=== PATIENT | female | born 1995 | race Caucasian/White ===

== ENCOUNTER 2018-11-10 15:26 | Outpatient (CLI) | payer OTHER ==
[~2018-11-10] VITALS: Ht 157.5 cm; Wt 84.0 kg
[2018-11-10 15:44] VITALS: Ht 157.5 cm; Wt 84.0 kg
[2018-11-10 15:45] VITALS: BP 122/66; PULSE 101; RESP 18
[2018-11-10] MEDS ORDERED: LACTATED RINGER'S 1,000 ML IV SCH (17:30)
--- NOTE | 2018-11-10 19:10 | TRIAGE ---
OB Triage Datetime Report Generated by CPN: 11/10/2018 19:10 Datetime: 11/10/2018 17:34 Stage of : OB Triage Headache: Denies Blurred Vision: No RUQ Epigastric Pain: Denies Facial Edema: None Labor Evaluation Frequency: none Pattern: Normal: <= 5 Contractions in 10 Minutes Resting Tone [place]: Relaxed Heart Rate FHR Baseline Rate: 140 Monitor Mode: External US FHR Baseline Changes: No Baseline Change Variability: Moderate 6-25 bpm Accelerations: 15X15 Decelerations: None Category: Category I Pain Presence: None/Denies Vaginal Exam Membrane Status: Intact Datetime: 11/10/2018 15:49 Stage of : OB Triage Maternal Assessment Level of Consciousness: Fully Conscious DTR's/Clonus: DTRs 2+; No Clonus Headache: Denies Blurred Vision: No Respiratory Effort: Unlabored; Regular Rhythm; Equal Expansion Breath Sounds, Left: Clear and Equal Breath Sounds, Right: Clear and Equal Nausea/Vomiting: Denies RUQ Epigastric Pain: Denies Lower Extremities Edema: None Degree: None Upper Extremities Edema: None Degree: None Facial Edema: None Temperature Route: Oral Fall Risk Assessment History of Falling: (0) No Secondary Diagnosis: (0) No Ambulatory Aid: (0) Bedrest/Nurse Assist IV Therapy: (0) No Gait: (0) Normal/Bedrest/Immobile Mental Status: (0) Oriented to Own Ability Fall Score: 0 Fall Risk Score Definition: No Risk: No action required Monitor Mode: External Heart Rate FHR Baseline Rate: 140 Monitor Mode: External US Pain Assessment Pain Scale: 5 Pain Presence: Intermittent Pain Type: Cramping Pain Location: Abdomen Pain Goal: lower abd Datetime: 11/10/2018 15:47 Time of Arrival: 11/10/2018 15:19 EGA: 30.3 Arrived By: Ambulatory Arrived From: Home Chief Complaint: lower abd pain Movement: Present Rupture of Membranes: Denies Vaginal Discharge: Denies Recent Sexual Intercouse: Denies Abdominal Trauma: Not Applicable Patient Complaints: Other Additional Patient Complaints: wake up with lower abd pain, denies bleedinga nd leaking of water Time Provider Notified: 11/10/2018 15:45 Provider Notified: Tamar Initial Plan: efm/ u/s, cbc, ua, cmp
--- NOTE | 2018-11-19 17:58 | HP ---
DATE OF ADMISSION: 11/10/2018 HISTORY OF PRESENT ILLNESS: This is a 22-year-old lady, 1, EDC of 01/22/2019, at 29 and 5/7 weeks, admitted to labor and delivery area because of lower abdominal pain and low back pain that sta rted about few hours prior to admission. She had care at Dr. Goddard's office, [facility] and the care was uneventful. PAST PERSONAL HISTORY: No history of diabetes, TB, asthma. ALLERGIES: NO ALLERGIES. SOCIAL HISTORY: The patient does not smoke. She does not drink. MEDICATIONS: She does not take any drugs except her; 1. Iron. 2. Vitamins. GYNECOLOGIC HISTORY: She had menarche at the age of 11, every 28 days interval, 3 to 4 days duration and moderate in amount. FAMILY HISTORY: Noncontributory. REVIEW OF SYSTEMS: CARDIOVASCULAR: No chest pains. RESPIRATORY: No cough. GASTROINTESTINAL: No diarrhea, no vomiting. GENITOURINARY: No dysuria. PHYSICAL EXAMINATION: GENERAL: Reveals a conscious, coherent lady and in no acute distress. VITAL SIGNS: Her blood pressure 120/80, pulse rate 80 per minute, respirations 16 per minute. BREASTS, HEART AND LUNGS: Within normal limits. ABDOMEN: Soft. No organomegaly. Fundic height is 29 cm. heart tones are 140 per minute. PELVIC: Done by me revealed the cervix to be closed. EXTREMITIES: No pedal edema. ADMITTING DIAGNOSES: 1. A 29-5/7 weeks' intrauterine . 2. Rule out labor. PLAN: The patient was ordered hydration and she had an OB ultrasound. The OB ultrasound, SVEN and BP P were all normal. After few hours of observation, the patient felt good and no more pain, so she wa s discharged home in good and stable condition on general diet and activity was restricted. She was counseled. She was instructed. She was told to come back to the clinic in 1 week. FINAL DIAGNOSES: 1. A 29-5/7 weeks' intrauterine . 2. False labor. 3. Dehydration. Dictated By: YAHAIRA ISLAS MD NS/NTS Conf#: [id number] DID#: [id number] CC: HECTOR GODDARD MD;*EndCC*
== END 2018-11-10 18:56 | disposition home or self-care (01) ==
LOC: OBT 15:26 → L-D 15:30 → OBT 18:56
PROVIDERS: ATTEND Obstetrics & Gynecology
DX: O26.893 Other specified pregnancy related conditions, third trimester (principal); Z3A.29 29 weeks gestation of pregnancy; M54.5 Low back pain; R10.30 Lower abdominal pain, unspecified
CPT/HCPCS: 76817; 76818; 80053; 81001; 85025; 96360; J7120; Z7500; G0463

== ENCOUNTER 2018-12-10 22:46 | Inpatient (IN) | payer OTHER ==
[~2018-12-10] VITALS: Ht 157.5 cm; Wt 88.1 kg
[2018-12-10 22:52] VITALS: BP 117/59; PULSE 83; RESP 17; Ht 157.5 cm; Wt 88.1 kg
[2018-12-10] MEDS ORDERED: DOCU-144 PO (22:56)
[2018-12-10] MEDS ORDERED: PREN-93 PO (22:56)
[2018-12-11] MEDS ORDERED: LACTATED RINGER'S 1,000 ML IV ONE (02:00)
[2018-12-11] MEDS ORDERED: TERBUTALINE 1 MG/ML INJ SC ONE (02:00)
--- NOTE | 2018-12-11 02:00 | HP ---
Date/Time of Note Date/Time of Note DATE: 12/11/18 TIME: 01:57 OB - History Hx of Present Free Text/Dictation 22-year-old 1 para 0 at 33 weeks and 6 days of gestation with estimated date of delivery January 22, 2019 Patient is GDM A1 Patient presents with chief complaint of contractions every 5 to 6 minutes She reports positive movement, denies any vaginal bleeding or leaking fluid Estimated Due Date: Jan 22, 2019 : 1 Para: 0 Care: Good Care Obstetrical Complications: Gestational Diabetes (GDM A1) Past Family/Social History * Past Medical, Surgical, Family and Obstetric Histories reviewed from chart. OB Admission Exam Vital Signs Vital Signs Vital Signs Date Temp Pulse Resp B/P (MAP) Pulse Ox O2 O2 Flow FiO2 Time Delivery Rate 12/10/18 98.2 83 17 117/59 Room Air 22:52 (78) Physical Exam HEENT: WNL Heart: Rhythm Normal Lungs: Clear, Equal Abdomen: WNL Extremities: Normal Reflexes: Normal Cervical Dilatation: None Membranes: Intact Heart Rate: 140's Accelerations: Accelerations Present Decelerations: No Decelerations Varibility: Moderate Contractions on Admission: < 5 Minutes Apart Intensity: Moderate Last 72 hours Lab Results Urine Results - 72 Hrs Test 12/10/18 23:30 Urine Color YELLOW (YELLOW) Urine Clarity CLEAR (CLEAR) Urine pH 7.0 (5.0-9.0) Urine Specific [place] 1.013 (1.003-1.030) Urine Ketones NEGATIVE mg/dL (NEGATIVE) Urine Nitrite NEGATIVE mg/dL (NEGATIVE) Urine Bilirubin NEGATIVE mg/dL (NEGATIVE) Urine Urobilinogen NEGATIVE mg/dL (NEGATIVE) Urine Leukocyte Esterase NEGATIVE [place] Urine Hemoglobin NEGATIVE mg/dL (NEGATIVE) Urine Glucose NEGATIVE mg/dL (NEGATIVE) Urine Total Protein NEGATIVE mg/dl (NEGATIVE) PROCEDURE: US biophysical profile. CLINICAL INDICATION: labor. well-being. TECHNIQUE: Multiple sonographic images of the uterus were obtained. The images were reviewed on a PACS workstation. COMPARISON: US PELVIS 11/10/2018 FINDINGS: There is a single live intrauterine gestation. heart rate is 127 beats per minute. The position is cephalic. The placenta is fundal, grade 1-2. The SVEN is 16 cm. The cervix is closed and measures 2.9 cm. Breathing Movement: 2 Gross Body Movement: 2 Tone: 2 Qualitative Amniotic Fluid Volume: 2 TOTAL: 8 IMPRESSION: 1. Single viable intrauterine gestation. 2. Biophysical profile = 8/8. 3. SVEN = 16 cm. 4. The cervix is closed and measures 2.9 cm. RPTAT: HFN .Valencia Adame MD, Date Time Electronically viewed and signed by .Valencia Adame MD, on 12/11/2018 00:45 .N/ CC: YAHAIRA ISLAS MD [phone] Estimated weight 3150 g OB Assessment/Plan Reason for admission: labor Other plan: Admit to antepartum IV fluids Betamethasone for lung maturity Magnesium sulfate for neuro protection Perinatology and neonatology consultation Copies To: CC: YAHAIRA ISLAS MD ; GLENDY MENDENHALL MD Dec 11, 2018 02:00
[2018-12-11] MEDS ORDERED: MAGNESIUM SULFATE 4 GM/100 ML 100 ML IV ONE (02:30)
[2018-12-11] MEDS: BETAMET NA PHOS/AC(6 MG/ML) 2 ML INJ SYG IM SCH (02:32)
[2018-12-11] MEDS ORDERED: MAGNESIUM SULFATE 20 GM/500 ML 500 ML IV SCH ×2 (03:00→09:00)
[2018-12-11] MEDS: LACTATED RINGER'S 1,000 ML IV SCH ×3 (03:21→19:00)
--- NOTE | 2018-12-11 06:02 | TRIAGE ---
OB Triage Datetime Report Generated by CPN: 12/11/2018 06:02 Datetime: 12/11/2018 04:31 Stage of : Antepartum Maternal Assessment Level of Consciousness: Fully Conscious DTR's/Clonus: DTRs 2+; No Clonus Headache: Denies Breath Sounds, Left: Clear and Equal Breath Sounds, Right: Clear and Equal Nausea/Vomiting: Denies RUQ Epigastric Pain: Denies Temperature Route: Oral Labor Evaluation Frequency: x3 Monitor Mode: External Duration (sec)2399: 50-90 Quality: Moderate Resting Tone [place]: Relaxed Heart Rate FHR Baseline Rate: 135 Monitor Mode: External US Variability: Moderate 6-25 bpm Accelerations: 15X15 Decelerations: None Pain Assessment Pain Scale: 6 Pain Presence: Intermittent Pain Type: Contraction Pain Location: Abdomen; Back Pain Relief Measures: Comfort Measures Datetime: 12/11/2018 04:16 Assessment Type: Admission Assessment Vaginal Bleeding: None Maternal Assessment Level of Consciousness: Fully Conscious DTR's/Clonus: DTRs 2+; No Clonus Headache: Denies Blurred Vision: No Respiratory Effort: Unlabored; Regular Rhythm; Equal Expansion Breath Sounds, Left: Clear and Equal Breath Sounds, Right: Clear and Equal Nausea/Vomiting: Denies RUQ Epigastric Pain: Denies Facial Edema: None Fall Risk Assessment History of Falling: (0) No Secondary Diagnosis: (0) No Ambulatory Aid: (0) Bedrest/Nurse Assist IV Therapy: (0) No Gait: (0) Normal/Bedrest/Immobile Mental Status: (0) Oriented to Own Ability Fall Score: 0 Fall Risk Score Definition: No Risk: No action required Datetime: 12/11/2018 02:42 Comments: MONITOR OFF, PT UP TO BR THEN TRANSFERRED TO 312B VIA WHEELCHAIR ACCOMPANIED BY BOG CUTTER Datetime: 12/11/2018 02:33 Labor Evaluation Frequency: irregular Monitor Mode: External Duration (sec)2399: 40-60 Quality: Mild Resting Tone [place]: Relaxed Heart Rate FHR Baseline Rate: 125 Monitor Mode: External US Variability: Moderate 6-25 bpm Accelerations: 15X15 Decelerations: None Category: Category I Pain Assessment Pain Scale: 6 Pain Presence: Intermittent Pain Type: Contraction Pain Location: Abdomen; Back Pain Relief Measures: Comfort Measures Datetime: 12/11/2018 02:00 Labor Evaluation Frequency: 2-6 Monitor Mode: External Duration (sec)2399: 40-90 Quality: Moderate Resting Tone [place]: Relaxed Heart Rate FHR Baseline Rate: 125 Monitor Mode: External US Variability: Moderate 6-25 bpm Accelerations: 15X15 Decelerations: None Category: Category I Pain Assessment Pain Scale: 6 Pain Presence: Intermittent Pain Type: Contraction Pain Location: Abdomen; Back Pain Relief Measures: Comfort Measures Datetime: 12/11/2018 01:00 Labor Evaluation Frequency: 2-7 Monitor Mode: External Duration (sec)2399: 40-70 Quality: Mild Resting Tone [place]: Relaxed Heart Rate FHR Baseline Rate: 120 Monitor Mode: External US Variability: Moderate 6-25 bpm Accelerations: 15X15 Decelerations: None Category: Category I Pain Assessment Pain Scale: 6 Pain Presence: Intermittent Pain Type: Contraction Pain Location: Abdomen; Back Pain Relief Measures: Comfort Measures Pain Assessment Comments: pt states pain has increased Datetime: 12/11/2018 00:57 Monitor Mode: External Pain Assessment Pain Scale: 6 Pain Presence: Intermittent Pain Type: Contraction Pain Location: Abdomen; Back Pain Relief Measures: Comfort Measures Datetime: 12/11/2018 00:00 Labor Evaluation Frequency: 6-8 Monitor Mode: External Duration (sec)2399: 40-60 Quality: Mild Pattern: Normal: <= 5 Contractions in 10 Minutes Resting Tone [place]: Relaxed Heart Rate FHR Baseline Rate: 140 Monitor Mode: External US Variability: Moderate 6-25 bpm Accelerations: 15X15 Decelerations: None Category: Category I Datetime: 12/10/2018 23:10 Vaginal Exam Dilatation (cms): 0.0 Effacement (%): 0 Station: -3 Exam By: EM Membrane Status: Intact Datetime: 12/10/2018 22:53 Time of Arrival: 12/10/2018 22:29 EGA: 33.6 Arrived By: Wheelchair Arrived From: Emergency Dept Chief Complaint: UC'S SINCE 1300 Movement: Present Contractions: Occasional Time Contractions Began: 12/10/2018 13:00 Rupture of Membranes: Denies Vaginal Bleeding: None Vaginal Discharge: Denies Recent Sexual Intercouse: Denies Abdominal Trauma: Not Applicable Patient Complaints: Contractions Time Provider Notified: 12/10/2018 23:04 Provider Notified: SALCEDA Initial Plan: EFM, VS CVL, BPP w/SVEN, EFW, PO hydration Datetime: 12/10/2018 22:52 Stage of : OB Triage Assessment Type: Triage Maternal Assessment Level of Consciousness: Fully Conscious Maternal Assessment Level of Consciousness: Fully Conscious DTR's/Clonus: DTRs 2+; No Clonus Headache: Denies Blurred Vision: No Respiratory Effort: Unlabored; Regular Rhythm; Equal Expansion Breath Sounds, Left: Clear and Equal Breath Sounds, Right: Clear and Equal Nausea/Vomiting: Denies RUQ Epigastric Pain: Denies Lower Extremities Edema: None Degree: None Upper Extremities Edema: None Degree: None Facial Edema: None Temperature Route: Oral Fall Risk Assessment History of Falling: (0) No Secondary Diagnosis: (0) No Ambulatory Aid: (0) Bedrest/Nurse Assist IV Therapy: (0) No Gait: (0) Normal/Bedrest/Immobile Mental Status: (0) Oriented to Own Ability Fall Score: 0 Fall Risk Score Definition: No Risk: No action required Pain Assessment Pain Scale: 5 Pain Presence: Intermittent Pain Type: Cramping Pain Location: Abdomen Datetime: 12/10/2018 22:50 Contraction Comments: TOCO APPLIED Comments: US APPLIED Datetime: 12/10/2018 22:47 Comments: MONITOR ON PT IN LR6 Datetime: 11/10/2018 15:49 Fall Score: 0 Fall Risk Score Definition: No Risk: No action required Datetime: 11/10/2018 15:47 EGA: 29.4
[2018-12-11] MEDS: ACCU-CHEK XX SCH ×6 (07:30→20:05)
[2018-12-11] MEDS ORDERED: MAGNESIUM SULFATE 4 GM/100 ML 100 ML IVPB ONE (09:00)
[2018-12-11] MEDS: FERROUS SULFATE (EC) 325 MG TAB PO SCH ×3 (10:34→21:13)
[2018-12-11] MEDS: PRENATAL VITAMIN PO SCH (10:35)
--- NOTE | 2018-12-11 11:41 | PERINOTE ---
Date/Time of Note Date/Time of Note DATE: 12/11/18 TIME: 11:18 Assessment/Recommendations Other Assessments 22 yo G1 at 34w1d with contractions and likely gestational diabetes. She is not dilated on vaginal exam and has a cervical length over 2.5cm. Her fetus is large for gestational age at the 97%, likely due to uncontrolled gestational diabetes. Patient also has history of GBS+ UTI. Recommendations: 1. Continue steroid course (2nd/last dose tomorrow) 2. Discontinue magnesium sulfate. Per ACOG practice bulletin #171, tocolysis is not generally indicated after 34 weeks and magnesium for neuroprotection is not indicated after 32 weeks. Long-term tocolysis is not indicated. 3. Consider penicillin or ampicillin for GBS prophylaxis while labor is being ruled out. 4. If no cervical change (repeat vaginal exam or transvaginal cervical length), patient may be discharged with precautions after completion of her steroid course 5. Insulin sliding-scale is recommended as patient received steroids. 6. Recommend diabetic teaching/education as an inpatient. She should be regularly checking her blood glucose at home and recording it. She should also receive outpatient perinatology consult in 2 weeks if patient is discharged OB Subjective Free Text/Dictaton Perinatology consult requested for contractions/ labor. Patient reports she was experiencing low back pain every 15-20 min and called her mother and came into hospital. Denies LOF or vaginal bleeding/bloody show. Reports she was never told she had gestational diabetes, she did a glucose challenge and had 1 elevation, but was told to "watch what she eats." She was not checking her blood sugar at home and has not received diabetic education. PMH: denies PSH: tubes in ears as child, cholecystectomy Meds: pnv, tylenol Allergies: iodine, shellfish SH: denies T/A/D HD# 1 IUP @ 34w0d Complaints/Overnight events Patient has received one dose of betamethasone. She continues to feel contractions, although less frequently. She is on magnesium sulfate. Her va ginal exam was 0/0/-3. Current Medications Current Medications Lactated Ringer's 1,000 ml @ 125 mls/hr Q8H IV Last administered on 12/11/18at 03:21; Admin Dose 125 MLS/HR; Start 12/11/18 at 03:00 Betamethasone Acet/Betameth SodPhos (Celestone Soluspan) 12 mg Q24H IM Last administered on 12/11/18at 02:32; Admin Dose 12 MG; Start 12/11/18 at 02:00; Stop 12/12/18 at 02:01 Prenat Multivit/ Manufacturing Industrial Engineer/Iron/Folic Ac () 1 tab DAILY PO Last administered on 12/11/18at 10:35; Admin Dose 1 TAB; Start 12/11/18 at 09:00 Diagnostic Test (Pha) (Accu-Chek) 1 ea FBSPP XX ; Start 12/11/18 at 06:00 Ferrous Sulfate (Ferrous Sulfate (Ec)) 325 mg TID PO Last administered on 12/11/18at 10:34; Admin Dose 325 MG; Start 12/11/18 at 09:00 Magnesium Sulfate 500 ml @ 50 mls/hr Q10H IV Last administered on 12/11/18at 10:00; Admin Dose 50 MLS/HR; Start 12/11/18 at 09:00 OB Admission Exam Physical Exam Vitals: Vital Signs Date Temp Pulse Resp B/P (MAP) Pulse Ox O2 O2 Flow FiO2 Time Delivery Rate 12/10/18 98.2 83 17 117/59 Room Air 22:52 (78) Abdomen: WNL Extremities: Normal Last 72 hourBlood Glucose Bedside Glucose - 72 Hours Test 12/11/18 08:29 Bedside Glucose 126 mg/dL (70-220) Last 72 hours Lab Results CBC & BMP 12/11/18 02:10 Liver Function Test 12/11/18 02:10 Alanine Aminotransferase (ALT/SGPT) 10 L Albumin 3.4 Alkaline Phosphatase 220 H Aspartate Amino Transf (AST/SGOT) 20 Direct Bilirubin 0.00 Total Protein 6.7 Ultrasound Results EGA 37w1d EFW 3150g Position cephalic BPP 8/8 SVEN 16.1 Cervical Length 2.9 ADONIS EARL MD Dec 11, 2018 11:39
--- NOTE | 2018-12-11 12:37 | QN ---
Documentation Comment Neonatology consult Consult of the request of Dr. Back. Mother is 22-year-old 1 para 0 presenting to [facility] at 34 weeks of gestation with labor and a history of gestational diabetes which was diet-controlled. Mother is presently receiving a course of steroids and is on terbutaline and magnesium sulfate tocolysis with decreasing contractions. Mother's membranes are intact and she remains afebrile I spoke to the mother regarding the risks of delivery at 34 weeks including but not limited to the following. 1. Respiratory there is a mild risk for respiratory distress syndrome son claims increased in mother's who have gestational diabetes. I discussed the use of oxygen and noninvasive ventilatory support also the baby may have apnea prematurity requiring caffeine or noninvasive support for short period of time. Risk of chronic lung disease is very low in this particular type of . 2. Cardiac spoke about the risks of hypotension and use of volume and/or medication support for blood pressure. The risks of a significant ductus arteriosus however is low. 3. Observation for sepsis: Mother has intact membranes so is at low risk for infection. We will do workup on admission treatment based on those results. 4. Hematology/jaundice: Spoke about the risks of jaundice use of phototherapy as well as the possibility anemia should the require significant blood test. 5. Most of these infants do not have good nutritive support discussed the use of occupational physical therapy intervention gavage feedings. 6. Anticipated length of stay is to the due date minus about 2-3 weeks depending on the 's clinical status and progress. The risks of mortality is extremely low less than 1%. Wish to thank you for this consult will be available as necessary to provide care for this . If you have any further questions please do not hesitate to contact the NICU for further consultation CONSTANTINO TARIQ MD Dec 11, 2018 12:37
[2018-12-11] MEDS ORDERED: GLUCOSE GEL 15 GRAM TUBE BUCCAL PRN (13:00)
[2018-12-11] MEDS ORDERED: GLUCAGON 1 MG INJ IM PRN (13:00)
[2018-12-11] MEDS ORDERED: AMPICILLIN 2 GM/NS (PMX) 100 ML IVPB ONE (13:00)
[2018-12-11] MEDS ORDERED: DEXTROSE 50% 50 ML SYRINGE IV PRN ×2 (13:00)
[2018-12-11] MEDS ORDERED: GLUCOSE GEL 15 GRAM TUBE PO PRN ×2 (13:00)
[2018-12-11] MEDS: INSULIN ASPART [NOVOLOG] 3 ML PEN SC SCH ×2 (13:51→18:05)
[2018-12-11] MEDS: AMPICILLIN 1 GM/NS (PMX) 50 ML IVPB SCH ×2 (18:19→21:51)
[2018-12-11] MEDS ORDERED: INSULIN ASPART [NOVOLOG] 3 ML PEN SC SCH (21:00)
[2018-12-11] MEDS ORDERED: ACETAMINOPHEN 325 MG TAB PO PRN (21:30)
[2018-12-11] MEDS: ACETAMINOPHEN 325 MG TAB PO PRN (21:33)
[2018-12-12] MEDS: LACTATED RINGER'S 1,000 ML IV SCH ×2 (00:42→07:55)
[2018-12-12] MEDS: ACETAMINOPHEN 325 MG TAB PO PRN (01:51)
[2018-12-12] MEDS: AMPICILLIN 1 GM/NS (PMX) 50 ML IVPB SCH ×3 (01:51→09:32)
[2018-12-12] MEDS: BETAMET NA PHOS/AC(6 MG/ML) 2 ML INJ SYG IM SCH (02:42)
[2018-12-12] MEDS ORDERED: INSULIN ASPART [NOVOLOG] 3 ML PEN SC SCH ×2 (07:30)
[2018-12-12] MEDS: ACCU-CHEK XX SCH (07:48)
[2018-12-12] MEDS: FERROUS SULFATE (EC) 325 MG TAB PO SCH (09:32)
[2018-12-12] MEDS: PRENATAL VITAMIN PO SCH (09:32)
[2018-12-12] MEDS ORDERED: PREN-93 PO (11:11)
--- NOTE | 2018-12-12 12:26 | QN ---
Documentation Comment 34+wsk GA+FM No VB No LOF No CTXS No cervical change CX closed BPP 06/02 --->Discharge with precautions --->precautions discussed --->Questions with provider GUIDO DELAROSA M.D. Dec 12, 2018 12:26
--- NOTE | 2018-12-12 12:27 | DS ---
Date/Time of Note Date/Time of Note DATE: 12/12/18 TIME: 12:27 Discharge Summary Admission/Discharge Info Admit Date/Time Dec 11, 2018 at 01:39 Discharge Date/Time 12/12/2018 Discharge Diagnosis labor Patient Condition: Good Hospital Course uneventful Home Meds Reported Medications Vit No.124/Iron/FA ( Vitamin Tablet) 1 Each Tablet, 1 EACH PO, TAB 12/12/18 Vit No.124/Iron/FA ( Vitamin Tablet) 1 Each Tablet, 1 EACH PO, TAB 12/10/18 Discontinued Reported Medications Docusate Sodium* (Colace*) 100 Mg Capsule, 100 MG PO BID PRN for CONSTIPATION, #60 CAP 12/10/18 Primary Care Provider Care Physician No Primary Pending Labs Laboratory Tests Test 12/11/18 13:04 12/11/18 13:46 12/11/18 16:24 12/11/18 17:57 Hemoglobin A1c 5.9 % (0-5.9) Magnesium 4.6 Level mg/dl (1.7-2.5) Bedside 126 126 120 Glucose mg/dL (70-220) mg/dL (70-220) mg/dL (70-220) Test 12/12/18 07:40 12/12/18 12:11 Bedside 126 149 Glucose mg/dL (70-220) mg/dL (70-220) GUIDO DELAROSA M.D. Dec 12, 2018 12:27
== END 2018-12-12 13:18 | disposition home or self-care (01) | DRG 833 ==
LOC: OBT 22:46 → L-D 22:47 → OBT 12-11 01:39 → PP1 12-11 01:39
PROVIDERS: ADMIT Obstetrics & Gynecology; ATTEND Obstetrics & Gynecology
PROC: 4A1HXCZ Monitoring of Products of Conception, Cardiac Rate, External Approach (ICD-10-PCS; principal; 2018-12-11)
DX: O60.03 Preterm labor without delivery, third trimester (principal); O24.410 Gestational diabetes mellitus in pregnancy, diet controlled; O36.63X0 Maternal care for excessive fetal growth, third trimester, not applicable or unspecified; Z3A.33 33 weeks gestation of pregnancy
CPT/HCPCS: 76815; 76817; 76818; 80053; 81003; 82962; 83036; 83735; 85025; 85610; 85730; 86850; 86900; 86901; G0463; J0290; J0702; J1815; J3105; J3475; J7120

== ENCOUNTER 2019-01-03 23:28 | Outpatient (CLI) | payer OTHER ==
[~2019-01-03] VITALS: Ht 157.5 cm; Wt 90.6 kg
[~2019-01-03 23:28] MED LIST: PREN-93 PO
[2019-01-03 23:37] VITALS: Ht 157.5 cm; Wt 90.6 kg
[2019-01-03 23:41] VITALS: BP 130/76; PULSE 103; RESP 18
--- NOTE | 2019-01-04 02:47 | PN ---
Triage Information Date/Time January 04, 2019 Reason for visit: Uterine contractions Weeks of Gestation 37w 3d /Para 1/0 Diabetes: none Hypertention: none Additional information Pt reports UC's q 10 minutes and pelvic pressure. No bleeding or leaking. ++FM. PMHx: none. PSHx: cholecystectomy. All: Iodine. Shellfish. Objective Vital Signs Date Temp Pulse Resp B/P (MAP) Pulse Ox O2 O2 Flow FiO2 Time Delivery Rate 01/03/19 98.1 103 18 130/76 98 Room Air 23:41 (94) Heart Rate: 140's Heart Rate Comments Accels to 170 BPM. No decels. Contractions: 6-10 Minutes Apart Exam Closed/thick/high. Results/Medications Result Diagram: 01/04/191901/04/19 0020 Results 24 hrs Laboratory Tests Test 01/03/19 23:35 01/04/19 00:20 Urine Color YELLOW Urine Clarity SLIGHTLY CLOUDY A Urine pH 6.0 Urine Specific [place] 1.023 Urine Ketones NEGATIVE Urine Nitrite NEGATIVE Urine Bilirubin NEGATIVE Urine Urobilinogen NEGATIVE Urine Leukocyte Esterase NEGATIVE Urine Microscopic RBC 1 Urine Microscopic WBC 9 H Urine Squamous Epithelial Cells FEW Urine Hemoglobin NEGATIVE Urine Glucose NEGATIVE Urine Total Protein 1+ H White Blood Count 7.8 # Red Blood Count 3.34 L Hemoglobin 10.5 L Hematocrit 33.0 L Mean Corpuscular Volume 98.8 Mean Corpuscular Hemoglobin 31.4 Mean Corpuscular Hemoglobin Concent 31.8 L Red Cell Distribution Width 18.5 #H Platelet Count 213 # Mean Platelet Volume 12.0 H Immature Granulocytes % 0.800 H Neutrophils % 71.9 Lymphocytes % 18.9 Monocytes % 6.9 Eosinophils % 1.0 Basophils % 0.5 Nucleated Red Blood Cells % 0.0 Immature Granulocytes # 0.060 H Neutrophils # 5.6 Lymphocytes # 1.5 Monocytes # 0.5 Eosinophils # 0.1 Basophils # 0.0 Nucleated Red Blood Cells # 0.0 Sodium Level 139 Potassium Level 3.6 Chloride Level 111 H Carbon Dioxide Level 20 L Anion Gap 8 Blood Urea Nitrogen 9 Creatinine 0.50 Est Glomerular Filtrat Rate mL/min > 60 Glucose Level 116 Calcium Level 9.2 Total Bilirubin 0.4 Direct Bilirubin 0.00 Indirect Bilirubin 0.4 Aspartate Amino Transf (AST/SGOT) 20 Alanine Aminotransferase (ALT/SGPT) 9 L Alkaline Phosphatase 192 H Total Protein 6.1 Albumin 3.2 L Globulin 2.90 Albumin/Globulin Ratio 1.10 Imaging Results BPP 8/8 with an SVEN of 9.6 cm. VTX. EFW 3822 grams. Disposition: Discharge Assessment/Plan A: IUP at 37w 3d. False labor. P: D/c home. Labor precautions reviewed. Pt has an appt for later today with Dr Boyle. NATASHA KULKARNI MD January 04, 2019 02:47
--- NOTE | 2019-01-04 03:04 | TRIAGE ---
OB Triage Datetime Report Generated by CPN: 01/04/2019 03:03 Datetime: 01/04/2019 02:24 Stage of : OB Triage Datetime: 01/04/2019 01:10 Stage of : OB Triage Datetime: 01/04/2019 01:05 Stage of : OB Triage Labor Evaluation Frequency: 7-10 Monitor Mode: External Duration (sec)2399: 60-100 Pattern: Normal: <= 5 Contractions in 10 Minutes Resting Tone [place]: Relaxed Heart Rate FHR Baseline Rate: 135 Monitor Mode: External US Variability: Moderate 6-25 bpm Accelerations: 15X15 Decelerations: None Category: Category I Pain Assessment Pain Scale: 6 Pain Presence: Intermittent Pain Type: Contraction Pain Location: Abdomen; Back Pain Relief Measures: Comfort Measures Datetime: 01/04/2019 00:05 Stage of : Labor Labor Evaluation Frequency: x 2 Monitor Mode: External Duration (sec)2399: 60-80 Pattern: Normal: <= 5 Contractions in 10 Minutes Resting Tone [place]: Relaxed Heart Rate FHR Baseline Rate: 130 Monitor Mode: External US Variability: Moderate 6-25 bpm Accelerations: 15X15 Decelerations: None Category: Category I Datetime: 01/03/2019 23:49 Stage of : OB Triage Assessment Type: Triage Maternal Assessment Level of Consciousness: Fully Conscious DTR's/Clonus: DTRs 2+; No Clonus Headache: Denies Blurred Vision: No Respiratory Effort: Unlabored; Regular Rhythm; Equal Expansion Breath Sounds, Left: Clear and Equal Breath Sounds, Right: Clear and Equal Nausea/Vomiting: Denies RUQ Epigastric Pain: Denies Lower Extremities Edema: Bilateral Lower Extremities Degree: None Upper Extremities Edema: None Degree: None Facial Edema: None Temperature Route: Oral Fall Risk Assessment History of Falling: (0) No Secondary Diagnosis: (0) No Ambulatory Aid: (0) Bedrest/Nurse Assist IV Therapy: (0) No Gait: (0) Normal/Bedrest/Immobile Mental Status: (0) Oriented to Own Ability Fall Score: 0 Fall Risk Score Definition: No Risk: No action required Pain Assessment Pain Scale: 6 Pain Presence: Intermittent Pain Type: Contraction; Pressure Pain Location: Abdomen; Back; Right Flank; Left Flank Pain Relief Measures: Comfort Measures Vaginal Exam Dilatation (cms): 0.0 Exam By: Dimitry RN Datetime: 01/03/2019 23:34 Time of Arrival: 01/03/2019 23:21 EGA: 37.2 Arrived By: Wheelchair Arrived From: Emergency Dept Movement: Present Contractions: Regular Time Contractions Began: 01/03/2019 22:30 Contractions: 5-10 Rupture of Membranes: Denies Vaginal Bleeding: None Vaginal Discharge: Denies Recent Sexual Intercouse: Denies Abdominal Trauma: Not Applicable Patient Complaints: Contractions Time Provider Notified: 01/03/2019 23:53 Provider Notified: Salceda Initial Plan: VS, EFM, SVE Datetime: 12/12/2018 12:45 Stage of : Antepartum Maternal Assessment Level of Consciousness: Fully Conscious DTR's/Clonus: DTRs 1+ Headache: Denies Breath Sounds, Left: Clear and Equal Breath Sounds, Right: Clear and Equal Nausea/Vomiting: Denies RUQ Epigastric Pain: Denies Labor Evaluation Frequency: X1 Monitor Mode: External Duration (sec)2399: 50 Quality: Mild Pattern: Normal: <= 5 Contractions in 10 Minutes Resting Tone [place]: Relaxed Heart Rate FHR Baseline Rate: 125 Monitor Mode: External US Variability: Moderate 6-25 bpm Accelerations: 15X15 Decelerations: None Category: Category I Pain Assessment Pain Scale: 0 Pain Presence: None/Denies Pain Type: N/A Pain Goal: 3 Membrane Status: Intact Datetime: 12/12/2018 12:14 Bedside Blood Glucose: 149 Datetime: 12/12/2018 12:00 Stage of : Antepartum Maternal Assessment Level of Consciousness: Fully Conscious DTR's/Clonus: DTRs 1+ Headache: Denies Breath Sounds, Left: Clear and Equal Breath Sounds, Right: Clear and Equal Nausea/Vomiting: Denies RUQ Epigastric Pain: Denies Labor Evaluation Frequency: X3 Monitor Mode: External Duration (sec)2399: 50 Quality: Mild Pattern: Normal: <= 5 Contractions in 10 Minutes Resting Tone [place]: Relaxed Heart Rate FHR Baseline Rate: 125 Monitor Mode: External US Variability: Moderate 6-25 bpm Accelerations: 15X15 Decelerations: None Category: Category I Pain Assessment Pain Scale: 0 Pain Presence: None/Denies Pain Type: N/A Pain Goal: 3 Membrane Status: Intact Datetime: 12/12/2018 11:00 Stage of : Antepartum Maternal Assessment Level of Consciousness: Fully Conscious DTR's/Clonus: DTRs 1+ Headache: Denies Breath Sounds, Left: Clear and Equal Breath Sounds, Right: Clear and Equal Nausea/Vomiting: Denies RUQ Epigastric Pain: Denies Labor Evaluation Frequency: X1 Monitor Mode: External Duration (sec)2399: 50 Quality: Mild Pattern: Normal: <= 5 Contractions in 10 Minutes Resting Tone [place]: Relaxed Heart Rate FHR Baseline Rate: 125 Monitor Mode: External US Variability: Moderate 6-25 bpm Accelerations: 15X15 Decelerations: None Category: Category I Pain Assessment Pain Scale: 0 Pain Presence: None/Denies Pain Type: N/A Pain Goal: 3 Membrane Status: Intact Datetime: 12/12/2018 10:43 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 Datetime: 12/12/2018 10:00 Stage of : Antepartum Maternal Assessment Level of Consciousness: Fully Conscious DTR's/Clonus: DTRs 1+ Headache: Denies Breath Sounds, Left: Clear and Equal Breath Sounds, Right: Clear and Equal Nausea/Vomiting: Denies RUQ Epigastric Pain: Denies Labor Evaluation Frequency: X2 Monitor Mode: External Duration (sec)2399: 40-50 Quality: Mild Pattern: Normal: <= 5 Contractions in 10 Minutes Resting Tone [place]: Relaxed Heart Rate FHR Baseline Rate: 125 Monitor Mode: External US Variability: Moderate 6-25 bpm Accelerations: 15X15 Decelerations: None Category: Category I Pain Assessment Pain Scale: 0 Pain Presence: None/Denies Pain Type: N/A Pain Goal: 3 Membrane Status: Intact Datetime: 12/12/2018 09:00 Maternal Assessment Level of Consciousness: Fully Conscious DTR's/Clonus: DTRs 1+ Headache: Denies Blurred Vision: No Respiratory Effort: Unlabored Breath Sounds, Left: Clear and Equal Breath Sounds, Right: Clear and Equal Nausea/Vomiting: Denies RUQ Epigastric Pain: Denies Facial Edema: None Labor Evaluation Frequency: X3 Monitor Mode: External Duration (sec)2399: 40-50 Quality: Mild Pattern: Normal: <= 5 Contractions in 10 Minutes Resting Tone [place]: Relaxed Heart Rate FHR Baseline Rate: 125 Monitor Mode: External US Variability: Moderate 6-25 bpm Accelerations: 15X15 Decelerations: None Category: Category I Pain Assessment Pain Scale: 0 Pain Presence: None/Denies Pain Type: N/A Pain Goal: 3 Membrane Status: Intact Datetime: 12/12/2018 07:59 Maternal Assessment Level of Consciousness: Fully Conscious DTR's/Clonus: DTRs 1+ Headache: Denies Blurred Vision: No Respiratory Effort: Unlabored Breath Sounds, Left: Clear and Equal Breath Sounds, Right: Clear and Equal Nausea/Vomiting: Denies RUQ Epigastric Pain: Denies Facial Edema: None Labor Evaluation Frequency: x1 Monitor Mode: External Duration (sec)2399: 60 Quality: Mild Pattern: Normal: <= 5 Contractions in 10 Minutes Resting Tone [place]: Relaxed Heart Rate FHR Baseline Rate: 135 Monitor Mode: External US Variability: Moderate 6-25 bpm Accelerations: 15X15 Decelerations: None Category: Category I Pain Assessment Pain Scale: 0 Pain Presence: None/Denies Pain Type: N/A Pain Goal: 3 Membrane Status: Intact Datetime: 12/12/2018 07:35 Assessment Type: Ongoing Assessment Maternal Assessment Level of Consciousness: Fully Conscious DTR's/Clonus: DTRs 2+; No Clonus Headache: Denies Blurred Vision: No Respiratory Effort: Unlabored; Regular Rhythm; Equal Expansion Breath Sounds, Left: Clear and Equal Breath Sounds, Right: Clear and Equal Nausea/Vomiting: Denies RUQ Epigastric Pain: Denies Lower Extremities Edema: None Degree: None Upper Extremities Edema: None Degree: None Facial Edema: None Fall Risk Assessment History of Falling: (0) No Secondary Diagnosis: (0) No Ambulatory Aid: (0) Bedrest/Nurse Assist IV Therapy: (0) No Gait: (0) Normal/Bedrest/Immobile Mental Status: (0) Oriented to Own Ability Fall Score: 0 Fall Risk Score Definition: No Risk: No action required Datetime: 12/12/2018 07:34 Bedside Blood Glucose: 126 Datetime: 12/12/2018 07:00 Stage of : Antepartum Labor Evaluation Frequency: irregular Monitor Mode: External Pattern: Normal: <= 5 Contractions in 10 Minutes Resting Tone [place]: Relaxed Heart Rate FHR Baseline Rate: 135 Monitor Mode: External US Variability: Moderate 6-25 bpm Accelerations: 15X15 Decelerations: None Category: Category I Datetime: 12/12/2018 06:27 Monitor Mode: External Monitor Mode: External US Datetime: 12/12/2018 06:00 Stage of : Antepartum Labor Evaluation Frequency: irregular Monitor Mode: External Pattern: Normal: <= 5 Contractions in 10 Minutes Resting Tone [place]: Relaxed Heart Rate FHR Baseline Rate: 125 Monitor Mode: External US Variability: Moderate 6-25 bpm Accelerations: 15X15 Decelerations: None Category: Category I Datetime: 12/12/2018 05:10 Stage of : Antepartum Temperature Route: Oral Labor Evaluation Frequency: irregular Monitor Mode: External Pattern: Normal: <= 5 Contractions in 10 Minutes Resting Tone [place]: Relaxed Heart Rate FHR Baseline Rate: 135 Monitor Mode: External US Variability: Moderate 6-25 bpm Accelerations: 15X15 Decelerations: None Category: Category I Datetime: 12/12/2018 04:00 Stage of : Antepartum Labor Evaluation Frequency: irregular Monitor Mode: External Pattern: Normal: <= 5 Contractions in 10 Minutes Resting Tone [place]: Relaxed Heart Rate FHR Baseline Rate: 125 Monitor Mode: External US Variability: Moderate 6-25 bpm Accelerations: 15X15 Decelerations: None Category: Category I Datetime: 12/12/2018 03:00 Stage of : Antepartum Labor Evaluation Frequency: irregular Monitor Mode: External Pattern: Normal: <= 5 Contractions in 10 Minutes Resting Tone [place]: Relaxed Heart Rate FHR Baseline Rate: 130 Monitor Mode: External US Variability: Moderate 6-25 bpm Accelerations: 15X15 Decelerations: None Category: Category I Datetime: 12/12/2018 02:00 Stage of : Antepartum Labor Evaluation Frequency: irregular Monitor Mode: External Pattern: Normal: <= 5 Contractions in 10 Minutes Resting Tone [place]: Relaxed Heart Rate FHR Baseline Rate: 135 Monitor Mode: External US Variability: Moderate 6-25 bpm Accelerations: 15X15 Decelerations: None Category: Category I Datetime: 12/12/2018 01:42 Comments: loss of contact Datetime: 12/12/2018 01:34 Monitor Mode: External Monitor Mode: External US Datetime: 12/12/2018 01:00 Stage of : Antepartum Labor Evaluation Frequency: irregular Monitor Mode: External Pattern: Normal: <= 5 Contractions in 10 Minutes Resting Tone [place]: Relaxed Heart Rate FHR Baseline Rate: 135 Monitor Mode: External US Variability: Moderate 6-25 bpm Accelerations: 15X15 Decelerations: None Category: Category I Datetime: 12/12/2018 00:00 Stage of : Antepartum Temperature Route: Oral Labor Evaluation Frequency: irregular Monitor Mode: External Pattern: Normal: <= 5 Contractions in 10 Minutes Resting Tone [place]: Relaxed Heart Rate FHR Baseline Rate: 135 Monitor Mode: External US Variability: Moderate 6-25 bpm Accelerations: 15X15 Decelerations: None Category: Category I Datetime: 12/11/2018 23:00 Stage of : Antepartum Labor Evaluation Frequency: occassional Monitor Mode: External Duration (sec)2399: 40-80 Pattern: Normal: <= 5 Contractions in 10 Minutes Resting Tone [place]: Relaxed Heart Rate FHR Baseline Rate: 135 Monitor Mode: External US Variability: Moderate 6-25 bpm Accelerations: 15X15 Decelerations: None Category: Category I Datetime: 12/11/2018 22:00 Stage of : Antepartum Labor Evaluation Frequency: occassional Monitor Mode: External Duration (sec)2399: 40-80 Pattern: Normal: <= 5 Contractions in 10 Minutes Resting Tone [place]: Relaxed Heart Rate FHR Baseline Rate: 135 Monitor Mode: External US Variability: Moderate 6-25 bpm Accelerations: 15X15 Decelerations: None Category: Category I Datetime: 12/11/2018 21:47 Monitor Mode: External Monitor Mode: External US Datetime: 12/11/2018 21:00 Stage of : Antepartum Labor Evaluation Frequency: occassional Monitor Mode: External Duration (sec)2399: 40-80 Pattern: Normal: <= 5 Contractions in 10 Minutes Resting Tone [place]: Relaxed Heart Rate FHR Baseline Rate: 135 Monitor Mode: External US Variability: Moderate 6-25 bpm Accelerations: 15X15 Decelerations: None Category: Category I Datetime: 12/11/2018 20:30 Monitor Mode: External Monitor Mode: External US Datetime: 12/11/2018 20:00 Assessment Type: Ongoing Assessment Maternal Assessment Level of Consciousness: Fully Conscious DTR's/Clonus: DTRs 2+; No Clonus Headache: Denies Blurred Vision: No Respiratory Effort: Unlabored; Regular Rhythm; Equal Expansion Breath Sounds, Left: Clear and Equal Breath Sounds, Right: Clear and Equal Nausea/Vomiting: Denies RUQ Epigastric Pain: Denies Lower Extremities Edema: None Degree: None Upper Extremities Edema: None Degree: None Facial Edema: None Fall Risk Assessment History of Falling: (0) No Secondary Diagnosis: (0) No Ambulatory Aid: (0) Bedrest/Nurse Assist IV Therapy: (20) Yes Gait: (0) Normal/Bedrest/Immobile Mental Status: (0) Oriented to Own Ability Fall Score: 20 Fall Risk Score Definition: No Risk: No action required Datetime: 12/11/2018 19:57 Stage of : Antepartum Labor Evaluation Frequency: x1 Monitor Mode: External Duration (sec)2399: 80 Pattern: Normal: <= 5 Contractions in 10 Minutes Resting Tone [place]: Relaxed Heart Rate FHR Baseline Rate: 135 Monitor Mode: External US Variability: Moderate 6-25 bpm Accelerations: 15X15 Decelerations: None Category: Category I Datetime: 12/11/2018 18:36 Labor Evaluation Frequency: 11 Monitor Mode: External Duration (sec)2399: 90 Quality: Mild Pattern: Normal: <= 5 Contractions in 10 Minutes Resting Tone [place]: Relaxed Heart Rate FHR Baseline Rate: 130 Monitor Mode: External US FHR Baseline Changes: No Baseline Change Variability: Moderate 6-25 bpm Accelerations: 15X15 Decelerations: None Category: Category I Datetime: 12/11/2018 17:30 Labor Evaluation Frequency: 0 Monitor Mode: External Pattern: Normal: <= 5 Contractions in 10 Minutes Resting Tone [place]: Relaxed Heart Rate FHR Baseline Rate: 130 Monitor Mode: External US FHR Baseline Changes: No Baseline Change Variability: Moderate 6-25 bpm Accelerations: 15X15 Decelerations: None Category: Category I Datetime: 12/11/2018 16:30 Labor Evaluation Frequency: 0 Monitor Mode: External Pattern: Normal: <= 5 Contractions in 10 Minutes Resting Tone [place]: Relaxed Heart Rate FHR Baseline Rate: 130 Monitor Mode: External US FHR Baseline Changes: No Baseline Change Variability: Moderate 6-25 bpm Accelerations: 15X15 Decelerations: None Category: Category I Datetime: 12/11/2018 16:27 Stage of : Antepartum Temperature Route: Oral Pain Assessment Pain Scale: 0 Pain Presence: None/Denies Pain Goal: 0 Datetime: 12/11/2018 16:21 Stage of : Labor Datetime: 12/11/2018 15:47 Labor Evaluation Frequency: 0 Monitor Mode: External Pattern: Normal: <= 5 Contractions in 10 Minutes Resting Tone [place]: Relaxed Heart Rate FHR Baseline Rate: 130 Monitor Mode: External US FHR Baseline Changes: No Baseline Change Variability: Moderate 6-25 bpm Accelerations: 15X15 Decelerations: None Category: Category I Datetime: 12/11/2018 14:30 Labor Evaluation Frequency: X4 Monitor Mode: External Duration (sec)2399: 60 Quality: Mild Pattern: Normal: <= 5 Contractions in 10 Minutes Resting Tone [place]: Relaxed Heart Rate FHR Baseline Rate: 130 Monitor Mode: External US FHR Baseline Changes: No Baseline Change Variability: Moderate 6-25 bpm Accelerations: 15X15 Decelerations: None Category: Category I Datetime: 12/11/2018 13:30 Labor Evaluation Frequency: X2 Monitor Mode: External Quality: Mild Pattern: Normal: <= 5 Contractions in 10 Minutes Resting Tone [place]: Relaxed Heart Rate FHR Baseline Rate: 130 Monitor Mode: External US FHR Baseline Changes: No Baseline Change Variability: Moderate 6-25 bpm Accelerations: 15X15 Decelerations: None Category: Category I Datetime: 12/11/2018 13:14 Stage of : Antepartum Datetime: 12/11/2018 12:30 Stage of : Antepartum Labor Evaluation Frequency: X8/HR Monitor Mode: External Quality: Mild Resting Tone [place]: Relaxed Heart Rate FHR Baseline Rate: 130 Monitor Mode: External US FHR Baseline Changes: No Baseline Change Variability: Moderate 6-25 bpm Accelerations: 15X15 Decelerations: None Category: Category I Datetime: 12/11/2018 11:10 Labor Evaluation Frequency: 6-7 Monitor Mode: External Duration (sec)2399: 60 Quality: Mild Resting Tone [place]: Relaxed Heart Rate FHR Baseline Rate: 130 Monitor Mode: External US FHR Baseline Changes: No Baseline Change Variability: Moderate 6-25 bpm Accelerations: 15X15 Decelerations: None Category: Category I Datetime: 12/11/2018 10:30 Labor Evaluation Frequency: 2-8 Monitor Mode: External Duration (sec)2399: 40-60 Quality: Mild Pattern: Normal: <= 5 Contractions in 10 Minutes Resting Tone [place]: Relaxed Heart Rate FHR Baseline Rate: 130 Monitor Mode: External US FHR Baseline Changes: No Baseline Change Variability: Moderate 6-25 bpm Accelerations: 15X15 Decelerations: None Category: Category I Datetime: 12/11/2018 09:40 Labor Evaluation Frequency: 2-4 Monitor Mode: External Quality: Mild Pattern: Normal: <= 5 Contractions in 10 Minutes Resting Tone [place]: Relaxed Heart Rate FHR Baseline Rate: 130 Monitor Mode: External US FHR Baseline Changes: No Baseline Change Variability: Moderate 6-25 bpm Accelerations: 15X15 Decelerations: None Category: Category I Datetime: 12/11/2018 08:30 Labor Evaluation Frequency: 2-4 Monitor Mode: External Duration (sec)2399: 60 Quality: Mild Pattern: Normal: <= 5 Contractions in 10 Minutes Resting Tone [place]: Relaxed Heart Rate FHR Baseline Rate: 130 Monitor Mode: External US FHR Baseline Changes: No Baseline Change Variability: Moderate 6-25 bpm Accelerations: 15X15 Decelerations: None Category: Category I Datetime: 12/11/2018 08:17 Assessment Type: Ongoing Assessment Maternal Assessment Level of Consciousness: Fully Conscious DTR's/Clonus: DTRs 2+; No Clonus Headache: Denies Blurred Vision: No Respiratory Effort: Unlabored; Regular Rhythm; Equal Expansion Breath Sounds, Left: Clear and Equal Breath Sounds, Right: Clear and Equal Nausea/Vomiting: Denies RUQ Epigastric Pain: Denies Lower Extremities Edema: None Degree: None Upper Extremities Edema: None Degree: None Facial Edema: None Fall Risk Assessment History of Falling: (0) No Secondary Diagnosis: (0) No Ambulatory Aid: (0) Bedrest/Nurse Assist IV Therapy: (0) No Gait: (0) Normal/Bedrest/Immobile Mental Status: (0) Oriented to Own Ability Fall Score: 0 Fall Risk Score Definition: No Risk: No action required Datetime: 12/11/2018 08:13 Stage of : Antepartum Temperature Route: Oral Pain Assessment Pain Scale: 6 Pain Presence: Intermittent Pain Type: Cramping; Contraction Pain Location: Abdomen; Back Pain Goal: 0 Pain Relief Measures: Comfort Measures Datetime: 12/11/2018 07:31 Stage of : Antepartum Datetime: 12/11/2018 07:30 Labor Evaluation Frequency: 2-4 Monitor Mode: External Duration (sec)2399: 60 Quality: Mild Pattern: Normal: <= 5 Contractions in 10 Minutes Resting Tone [place]: Relaxed Heart Rate FHR Baseline Rate: 130 Monitor Mode: External US FHR Baseline Changes: No Baseline Change Variability: Moderate 6-25 bpm Accelerations: 15X15 Decelerations: None Category: Category I Datetime: 12/11/2018 06:30 Stage of : Antepartum Maternal Assessment Level of Consciousness: Fully Conscious Labor Evaluation Frequency: None Monitor Mode: External Pattern: Normal: <= 5 Contractions in 10 Minutes Resting Tone [place]: Relaxed Heart Rate FHR Baseline Rate: 135 Monitor Mode: External US Variability: Moderate 6-25 bpm Accelerations: 15X15 Decelerations: None Pain Assessment Pain Scale: 6 Pain Presence: Intermittent Pain Type: Contraction Datetime: 12/11/2018 05:31 Stage of : Antepartum Datetime: 12/11/2018 05:30 Stage of : Antepartum Maternal Assessment Level of Consciousness: Fully Conscious Labor Evaluation Frequency: None Monitor Mode: External Resting Tone [place]: Relaxed Heart Rate FHR Baseline Rate: 135 Monitor Mode: External US Variability: Moderate 6-25 bpm Accelerations: 15X15 Decelerations: None Pain Assessment Pain Scale: 6 Pain Presence: Intermittent Pain Type: Contraction Datetime: 12/11/2018 04:16 Stage of : Antepartum Fall Score: 0 Fall Risk Score Definition: No Risk: No action required Datetime: 12/11/2018 03:38 Stage of : Antepartum Datetime: 12/10/2018 22:53 EGA: 33.6 Datetime: 12/10/2018 22:52 Fall Score: 0 Fall Risk Score Definition: No Risk: No action required Datetime: 11/10/2018 15:49 Fall Score: 0 Fall Risk Score Definition: No Risk: No action required Datetime: 11/10/2018 15:47 EGA: 29.4
== END 2019-01-04 02:45 | disposition home or self-care (01) ==
LOC: L-D 23:28 → OBT 23:28
PROVIDERS: ATTEND Obstetrics & Gynecology
DX: O47.1 False labor at or after 37 completed weeks of gestation (principal); Z3A.37 37 weeks gestation of pregnancy
CPT/HCPCS: 76815; 76818; 80053; 81001; 85025; 87086; Z7500; G0463

== ENCOUNTER 2019-01-15 09:41 | Inpatient (IN) | payer OTHER ==
[~2019-01-15] VITALS: Ht 157.5 cm; Wt 92.8 kg
[~2019-01-15 09:41] MED LIST changes: +PROPOFOL 200 MG INJ ONE
[2019-01-15 10:44] VITALS: BP 131/62; PULSE 96; RESP 18
[2019-01-15] MEDS ORDERED: LIDOCAINE 1% (MPF) 30 ML INJ INJ PRN (11:00)
[2019-01-15] MEDS ORDERED: METHYLERGONOVINE 0.2 MG INJ IM PRN (11:00)
[2019-01-15] MEDS ORDERED: BUTORPHANOL 2 MG INJ IV PRN ×2 (11:00)
[2019-01-15] MEDS ORDERED: OXYTOCIN 30 UNITS/LR 500 ML IV PRN (11:00)
[2019-01-15] MEDS ORDERED: CARBOPROST 250 MCG INJ IM PRN (11:00)
[2019-01-15] MEDS ORDERED: MISOPROSTOL 200 MCG TAB PR PRN (11:00)
[2019-01-15] MEDS ORDERED: OXYTOCIN 30 UNITS/LR 500 ML IV SCH ×2 (11:00)
[2019-01-15] MEDS: LACTATED RINGER'S 1,000 ML IV SCH ×2 (11:44→19:41)
[2019-01-15 11:47] VITALS: Ht 157.5 cm; Wt 92.8 kg
[2019-01-15] MEDS ORDERED: AMPICILLIN 2 GM/NS (PMX) 100 ML IV ONE (12:00)
[2019-01-15] MEDS ORDERED: CEFAZOLIN 2 GM/50 ML (PMX) 50 ML IVPB ONE (15:00)
--- NOTE | 2019-01-15 15:41 | HP ---
Date/Time of Note Date/Time of Note DATE: 01/15/19 TIME: 15:37 OB - History Hx of Present Free Text/Dictation 23-year-old 1 para 0 at 39 weeks of gestation with estimated date of delivery January 22, 2019 Patient is gestational [id number] She presents with chief complaint of uterine contractions and leaking fluid since 8:15 AM She denies vaginal bleeding She reports positive movement GBS status is positive in urine culture Rubella status is nonimmune Estimated Due Date: Jan 22, 2019 : 1 Para: 0 Care: Good Care Obstetrical Complications: Gestational Diabetes (Diet controlled) Past Family/Social History * Past Medical, Surgical, Family and Obstetric Histories reviewed from chart. Rubella: not immune OB Admission Exam Vital Signs Vital Signs Vital Signs Date Temp Pulse Resp B/P (MAP) Pulse Ox O2 O2 Flow FiO2 Time Delivery Rate 01/15/19 98.3 96 18 131/62 10:44 (85) Physical Exam HEENT: WNL Heart: Rhythm Normal Lungs: Clear, Equal Abdomen: WNL Extremities: Normal Reflexes: Normal Cervical Dilatation: 2cm Effacement: 50% Station: -2 Membranes: Ruptured Amniotic Fluid: Clear Heart Rate: 140's Accelerations: Accelerations Present Decelerations: No Decelerations Varibility: Moderate Contractions on Admission: < 5 Minutes Apart Intensity: Moderate Last 72 hours Lab Results CBC & BMP 01/15/19 11:20 PROCEDURE: US OB. CLINICAL INDICATION: Labor. Gestational diabetes. TECHNIQUE: Transabdominal views of the pelvis are available for review. COMPARISON: OB ultrasound January 04, 2019 FINDINGS: Noted is a single intrauterine gestation in cephalic lie with positive heart beat measuring 150 beats per minute. Biparietal diameter measures 9.6 cm corresponding to a gestational age 39 weeks 2 days. Femur length measures 7.5 cm corresponding to a gestational age 38 weeks 4 days. Abdominal circumference measures 38.3 cm which is out of range. Estimated weight is 4240 g. Estimated date of delivery by ultrasound criteria is January 20, 2019. No gross anomaly is seen, however, no sonographic Feldman's sign was performed. The placenta is fundal grade II. There is no previa. Maternal cervix was not imaged. Amniotic fluid index was not calculated. IMPRESSION: Single intrauterine gestation in cephalic lie with positive heart beat with calculated age 39 weeks 2 days by ultrasound criteria. Fundal grade II placenta. .Gonzales Braun MD, MD Date Time Electronically viewed and signed by .Gonzales Braun MD, on 01/15/2019 12:36 .A/ CC: GLENDY MENDENHALL MD [id number] OB Assessment/Plan Reason for admission: rupture of membranes (and suspected macrosomia) Other plan: Spontaneous rupture membrane and suspected macrosomia Admit to labor and delivery Patient was counseled regarding suspected macrosomia and the risk of shoulder dystocia Patient desires to proceed with elective primary She was counseled regarding the benefits and all the risks including but not limited to infection, bleeding which may require blood transfusion, trauma to other organs including bladder and bowel. Patient understands her plan of care and agrees to proceed Copies To: CC: YAHAIRA ISLAS MD ; GLENDY MENDENHALL MD January 15, 2019 15:41
[2019-01-15] MEDS: AMPICILLIN 1 GM/NS (PMX) 50 ML IV SCH ×2 (16:35→22:20)
[2019-01-15] MEDS ORDERED: AZITHROMYCIN 500MG/NS (PMX) 250 ML IVPB ONE (20:00)
--- NOTE | 2019-01-15 20:16 | PREAC ---
Date/Time of Note Date/Time of Note DATE: 01/15/19 TIME: 20:14 Anesthesia Eval and Record Evaluation Time Pre-Procedure Interview DATE: 01/15/19 TIME: 20:14 Age 23 Sex female NPO: 8 hrs Preoperative diagnosis macrosomia Planned procedure c section Past Medical History Past Medical History: Includes Endo: Diabetes (gestational ) Surgery & Anesthesia Issues No known issue Meds Anticoagulation: No Beta Sam within 24 hr: No Reason Beta Sam not given: Pt. not on B-Sam Reported Medications Vit No.124/Iron/FA ( Vitamin Tablet) 1 Each Tablet, 1 EACH PO, TAB 12/10/18 Current Medications Lactated Ringer's 1,000 ml @ 125 mls/hr Q8H IV Last administered on 01/15/19at 19:41; Admin Dose 125 MLS/HR; Start 01/15/19 at 10:40 Butorphanol Tartrate (Stadol) 1 mg Q2H PRN IV .PAIN SCALE 1-5 Last administered on 01/15/19at 16:45; Admin Dose 1 MG; Start 01/15/19 at 11:00 Butorphanol Tartrate (Stadol) 2 mg Q2H PRN IV .PAIN SCALE 6-10; Start 01/15/19 at 11:00 Lidocaine (Xylocaine 1% (Mpf)) 30 ml ONCE PRN INJ .EPISIOTOMY; Start 01/15/19 at 11:00 Oxytocin/Lactated Ringer's 500 ml @ 500 mls/hr ONCE POST IV ; Start 01/15/19 at 11:00 Oxytocin/Lactated Ringer's 500 ml @ 125 mls/hr POST IV ; Start 01/15/19 at 11:00 Oxytocin/Lactated Ringer's 500 ml @ 0 mls/hr ONCE PRN IV .VAGINAL BLEEDING; Start 01/15/19 at 11:00 Methylergonovine Maleate (Methergine) 0.2 mg ONCE PRN IM .VAGINAL BLEEDING; Start 01/15/19 at 11:00 Carboprost Tromethamine (Hemabate) 250 mcg ONCE PRN IM .VAGINAL BLEEDING; Start 01/15/19 at 11:00 Misoprostol (Cytotec) 1,000 mcg ONCE PRN [place] .VAGINAL BLEEDING; Start 01/15/19 at 11:00 Ampicillin 50 ml @ 100 mls/hr Q4H IV Last administered on 01/15/19at 16:35; Ad min Dose 100 MLS/HR; Start 01/15/19 at 16:00 Azithromycin 250 ml @ 250 mls/hr ONCE ONCE IVPB ; Start 01/15/19 at 20:00; Stop 01/15/19 at 20:59 Meds reviewed: Yes Allergies Coded Allergies: iodine (Verified Allergy, Unknown, hives, 11/10/18) shellfish derived (Verified Allergy, Unknown, 12/10/18) Allergies Reviewed: Yes Labs/Studies Labs Reviewed: Reviewed by anesthesiologist Result Diagram: 01/15/19 1120 01/15/19 1120 Laboratory Tests 01/15/19 11:20 Blood Bank Test 01/15/19 11:20 Antibody Screen NEGATIVE Blood Type A POSITIVE Rh Immune Globulin Candidate NO test: N/A Pre-procedure Exam Last vitals Vital Signs Date Temp Pulse Resp B/P (MAP) Pulse Ox O2 O2 Flow FiO2 Time Delivery Rate 01/15/19 98.3 96 18 131/62 10:44 (85) Airway: Adequate mouth opening, Adequate thyromental dist Mallampati: Mallampati III Teeth: Normal Lung: Normal Heart: Normal ASA Physical Status ASA physical status: 2 Emergency: None Planned Anesthetic Neuraxial: Spinal Pre-operative Attestations Prior to commencing anesthesia and surgery, the patient was re-evaluated, there was verification of: *The patient's identity *The results of appropriate recent lab work and preoperative vital signs *The above evaluation not changing prior to induction *Anesthetic plan, risk benefits, alternative and complications discussed with patient/family; questions answered; patient/family understands, accepts and wishes to proceed. VIRI BOJORQUEZ DO January 15, 2019 20:16
[2019-01-15] MEDS ORDERED: FENTAnyl 50 MCG/ML VIAL ONE ×2 (20:20→21:23)
[2019-01-15] MEDS ORDERED: morphine SULFATE/PF (10 MG/10 ML) INJ ONE (20:21)
--- NOTE | 2019-01-15 20:24 | PN ---
Date/Time of Note Date/Time of Note DATE: 01/15/19 TIME: 20:12 OB Subjective Subjective Subjective 23 years old 1 with single intrauterine complaining of leakage of fluid at 08:15 this morning. She states good movement. She denies nausea, vomiting, shortness of breath, chest pain, headache, visual changes, vaginal bleeding. OB Objective Objective Objective General: Patient appears well, alert and oriented, NAD, appropriate mood and affect ABD: gravid, soft, non-tender. Back: No CVA tenderness (B/L) LE: Mild edema. No clubbing, cyanosis, edema, thigh or calf tenderness bilaterally FHT: 135 bpm , moderate variability with acceleration, no deceleration-category I Contractions: Irregular Speculum exam: Leakage of fluid seen, nitrazine is positive SVE: /-2/ceph/rupture membrane/clear OB Assessment/Plan Other plan: 23 years old 1 with single intrauterine at 39 weeks with LGA (4240 g) -FHR: No sign of metabolic acidosis- Category I -Continuous EFM, toco -Please see the orders -A+/Rubella: Non-immune, , will receive vaccine after delivery -GBS: Positive, she received ampicillin -Azithromycin 500 mg IV before -Regarding LGA, I have discussed there are greater risk with increase weight compare to the general obstetric population which including but not limited to Labor abnormalities, increase risk of delivery and shoulder dystocia with risk of fracture of the clavicle, humerus and damage to the nerves of the brachial plexus, risk of morbidity for infant, increased risk of maternal morbidity with patient and her family. They all expressed understanding. She and her family would like to have delivery. I also discussed persistent injury is more common with higher weights, and weights greater than 4,500 gram in particular. The risk of delivery including but not limited to bleeding, infection, injury to other organs (bowel, bladder, ureter, vessels, nerves), injury to fet us, blood transfusion, blood transfusion related infection, risk of anesthesia, adhesion, needs for future , removal of uterus or any other indicated surgery was discussed with the patient and her family. She expressed understanding. All of her questions were answered. She signed the informed consent. PHYSICIAN'S VERIFICATION OF INFORMED CONSENT The patient and her family counseled regarding the procedure, its indications, risks, potential complications and alternatives and any questions were answered. Consent was obtained. PLANNED PROCEDURE/TREATMENT: delivery with possible using vacuum/forceps and any other indicated surgery PHYSICIAN'S VERIFICATION OF INFORMED CONSENT FOR BLOOD TRANSFUSION: There is a reasonable possibility that blood transfusion will be necessary as a result of the patient's procedure. I have discussed the following with the patient/anika ent's legal customer care representative: An explanation of the benefits and risks of the transfusion of blood or blood products and the possible alternatives. All questions have been answered to the patient's satisfaction. INFORMED CONSENT:The patient has been informed of: The nature of the proposed care, treatment, services, medications, interventions or procedures. Potential benefits, risks or side effects, including potential problems related to recuperation. The likelihood of achieving care treatment and service goals. Reasonable alternatives to the proposed care, treatment and service. The relevant risks, benefits and side effects related to alternatives, including the possible results of not receiving care, treatment and services. When indicated, any limitations on the confidentiality of information learned from or about the patient. If appropriate, the risks, benefits and alternatives of the drugs to be used for sedation/analgesia including moderate sedation. If appropriate, patient has been provided information on the risks, benefits and alternatives to the transfusion of blood and/or blood products. If appropriate, patient has been provided information regarding the [place] Blood Act. JESSICA HUTTON January 15, 2019 20:23
[2019-01-15] MEDS ORDERED: HYDROmorphONE 0.5 MG/0.5 ML SYG IV PRN ×2 (20:30)
[2019-01-15] MEDS ORDERED: ZOLPIDEM 5 MG TAB PO PRN (20:30)
[2019-01-15] MEDS ORDERED: ONDANSETRON 4 MG INJ IV PRN (20:30)
[2019-01-15] MEDS ORDERED: DIPHENHYDRAMINE 50 MG INJ IV PRN (20:30)
[2019-01-15] MEDS ORDERED: NALOXONE (0.4 MG/ML) INJ IV PRN (20:30)
[2019-01-15] MEDS ORDERED: DEXAMETHASONE 4 MG/ML 1 ML INJ ONE (20:33)
[2019-01-15] MEDS ORDERED: DIPHENHYDRAMINE 50 MG INJ ONE (20:33)
[2019-01-15] MEDS ORDERED: ONDANSETRON 4 MG INJ ONE (20:33)
[2019-01-15] MEDS ORDERED: OXYTOCIN 30 UNITS/LR 500 ML IV ONE (20:50)
[2019-01-15] MEDS ORDERED: PHENYLephrine (100 MCG/ML) 10ML SYG ONE ×2 (21:03→21:04)
[2019-01-15] MEDS ORDERED: LIDOCAINE 2% (SDV) 5 ML INJ ONE (21:04)
[2019-01-15] MEDS ORDERED: MIDAZOLAM 1 MG/ML 2 ML INJ ONE (21:23)
[2019-01-16] VITALS (7 sets, daily range): BP systolic 106–130; BP diastolic 57–86; PULSE 78–107; RESP 16–20
[2019-01-16] MEDS: AMPICILLIN 1 GM/NS (PMX) 50 ML IV SCH
--- NOTE | 2019-01-16 01:38 | OPR ---
Operative Report Planned Procedure Procedure date January 16, 2019 Procedure(s) Primary low transverse delivery Performed by see signature line Cake Wrapper: NATASHA KULKARNI MD Anesthesiologist: VIRI BOJORQUEZ DO Pre-procedure diagnosis 23 years old 1 with single intrauterine at 39 weeks with LGA (4240 g) and spontaneous rupture of membrane [id number] Anesthesia Type: [id number] spinal Post-Procedure Post-procedure diagnosis 23 years old 1 with single intrauterine at 39 weeks with LGA (4240 g) and spontaneous rupture of membrane Findings Live Baby [], Apgars [] and [], weight [], position [], [] presentation []cord. Estimated Blood Loss: 500 - 600 mls Specimen(s) none Grafts/Implant(s) none Complication(s) none Pt Condition post procedure: stable Disposition: PACU Procedure Description 1. Normal uterus, fallopian tubes and ovaries 2. Viable male in cephalic presentation. 9 at one minute and 9 in 5 minutes. Weight: 4645 g 10 pounds on 4 oz. Time of delivery: 20:58 3. Placenta with three vessel cord 4. Amniotic fluid - Clear INDICATION AND HISTORY: A 23-year-old G1 with single intrauterine at 39 weeks with LGA and spontaneous rupture membranes. The risk of delivery including but not limited to bleeding, infection, injury to other organs (bowel, bladder, ureter, vessels, nerves), injury to fetus, blood transfusion, blood transfusion related infection, risk of anesthesia, adhesion, needs for future , removal of uterus or any other indicated surgery was discussed with the patient and her family. She expressed understanding. All of her questions were answered. She signed the informed consent. DESCRIPTION OF OPERATION: The patient was taken to the operating room, where she was identified and the procedure was verified. The patient received azithromycin 500 mg and two gram of Ancef 30 minutes prior to surgery. Spinal anesthesia was placed by anesthesiologist. The patient placed in the dorsal supine position with a left tilt. The heart rate was 128 bpm. The patient was then prepped and draped in the normal sterile fashion. A Pfannenstiel skin incision was made and carried down to the fascia with knife. The fascia was incised in the midline and the fascial incision was carried laterally with York scissors. The superior portion of the fascial incision was then grasped with Luna clamps and tented up and dissected off the underlying rectus muscle with sharp dissection. The lower portion of the fascial incision was then made in a similar fashion. The rectus muscle was and the peritoneum was entered. The peritoneal incision was then stretched and an Jordan retractor was inserted. Then, an incision was made in the lower uterine segment in a transverse fashion with a knife and extended bluntly. The was delivered atraumatically in cephalic presentation with the above findings. The umbilical cord was clamped and cut. The neonatology resuscitation team was present and the baby was handed to them. A cord blood sample was obtained for further evaluation. The placenta and membrane, which appeared normal were Removed. The uterus was exteriorized and cleared of all clot and debris. The uterus was then closed in a two layer fashion with 0-Monocryl. At the time of closure, hemostasis was noted. The gutters were irrigated. The peritoneum was reapproximated with 3-0 Vicryl. The muscle was reapproximated with 3-0 Vicryl. The fascia was approximated with 0-Vicryl in a running fashion. *The subcutaneous tissue was re approximated with 3-0 vicryl. The skin was closed with 4-0 Monocryl. All instruments, sponges and needle counts were correct x3. The patient tolerated the procedure well. She transferred to the recovery room in stable condition. JESSICA HUTTON January 16, 2019 01:38
[2019-01-16] MEDS: DEXTROSE 5%-LR 1,000 ML IV SCH ×3 (01:44→17:44)
[2019-01-16] MEDS ORDERED: OXYTOCIN 30 UNITS/LR 500 ML IV SCH (01:44)
[2019-01-16] MEDS ORDERED: MISOPROSTOL 200 MCG TAB PR PRN (02:00)
[2019-01-16] MEDS ORDERED: CARBOPROST 250 MCG INJ IM PRN (02:00)
[2019-01-16] MEDS ORDERED: METHYLERGONOVINE 0.2 MG INJ IM PRN (02:00)
[2019-01-16] MEDS ORDERED: OXYTOCIN 30 UNITS/LR 500 ML IV PRN (02:00)
[2019-01-16] MEDS ORDERED: METHYLERGONOVINE 0.2 MG TAB PO PRN (02:00)
[2019-01-16] MEDS: KETOROLAC 30 MG INJ IV PRN ×3 (02:08→17:51)
[2019-01-16] MEDS: SENNA/DOCUSATE NA (8.6MG/50MG) TAB PO SCH ×2 (09:34→21:07)
[2019-01-16] MEDS: LANOLIN HPA 1 PKT TOP PRN (17:51)
--- NOTE | 2019-01-16 18:12 | PN ---
Date/Time of Note Date/Time of Note DATE: 01/16/19 TIME: 18:10 OB Subjective Subjective Subjective POD#1 Patient is doing well. She denies nausea, vomiting, shortness of breath, chest pain, headache. She has been ambulating without difficulty, tolerating regular diet. Pain is well controlled on current medications OB Objective Objective Objective Vital Signs Date Temp Pulse Resp B/P (MAP) Pulse Ox O2 O2 Flow FiO2 Time Delivery Rate 01/16/19 98.7 97 20 106/64 15:58 (78) 01/16/19 98 Room Air 11:50 General: AAO X 3, comfortable, NAD, appropriate mood and affect. Heart: RRR +S1, +S2, no murmurs. Lungs: Clear to auscultation (B/L), no rales, rhonchi or wheezing. ABD: +BS. Soft, non-tender. Uterus 2 cm below umbilicus Incision: Clear, dry, intact. No erythema, drainage or induration. Flank: No CVA tenderness (B/L) LE: Mild edema. No clubbing, cyanosis, thigh or calf tenderness (B/L). Homans 'sign is negative OB Assessment/Plan Other plan: 23 years old 1 para 1-0-0-1 s/p primary delivery at 39 weeks for LGAPOD# - AF, VSS - Contraception methods with R/B/A/FR discussed - Continue care JESSICA HUTTON January 16, 2019 18:12
[2019-01-16] MEDS: IBUPROFEN 800 MG TAB PO SCH (23:28)
[2019-01-17 03:45] VITALS: BP 96/51; PULSE 80; RESP 18
[2019-01-17] MEDS: HYDROCODONE/APAP (5/325) TAB PO PRN ×3 (04:48→20:44)
[2019-01-17] MEDS: MAGNESIUM HYDROXIDE 30ML CUP PO PRN (04:48)
[2019-01-17] MEDS: IBUPROFEN 800 MG TAB PO SCH ×3 (06:03→15:45)
[2019-01-17 07:40] VITALS: BP 112/64; PULSE 83; RESP 16
[2019-01-17] MEDS: SENNA/DOCUSATE NA (8.6MG/50MG) TAB PO SCH ×2 (09:32→20:44)
[2019-01-17] MEDS ORDERED: DIPHTH/TET/ACEL PERTUSS (ADULT) 0.5 ML VIAL IM* ONE (11:00)
[2019-01-17] MEDS ORDERED: HYDROCODONE/APAP (5/325) TAB PO PRN (11:00)
--- NOTE | 2019-01-17 11:14 | PAC ---
Date/Time of Note Date/Time of Note DATE: 01/17/19 TIME: 11:13 Post-Anesthesia Notes Post-Anesthesia Note Last documented vital signs Vital Signs Date Temp Pulse Resp B/P (MAP) Pulse Ox O2 O2 Flow FiO2 Time Delivery Rate 01/17/19 97.7 83 16 112/64 Room Air 07:40 (80) 01/16/19 98 11:50 Activity: WNL Respiratory function: WNL Cardiovascular function: WNL Mental status: Baseline Pain reasonably controlled: Yes Hydration appropriate: Yes Nausea/Vomiting absent: Yes VIRI BOJORQUEZ DO January 17, 2019 11:14
[2019-01-17] MEDS: LANOLIN HPA 1 PKT TOP PRN (11:19)
[2019-01-17] MEDS: HYDROCODONE/APAP (5/325) TAB PO SCH ×2 (15:15→23:28)
[2019-01-17 15:50] VITALS: BP 122/68; PULSE 84; RESP 18
[2019-01-17 20:10] VITALS: BP 120/76; PULSE 78; RESP 18
[2019-01-18] MEDS: HYDROCODONE/APAP (5/325) TAB PO PRN ×2 (03:08→11:07)
[2019-01-18 03:21] VITALS: BP 119/73; PULSE 79; RESP 18
[2019-01-18] MEDS: IBUPROFEN 800 MG TAB PO SCH ×2 (06:32→13:57)
[2019-01-18] MEDS: HYDROCODONE/APAP (5/325) TAB PO SCH ×2 (06:32→13:57)
[2019-01-18 08:20] VITALS: BP 110/68; PULSE 75; RESP 18
[2019-01-18] MEDS: SENNA/DOCUSATE NA (8.6MG/50MG) TAB PO SCH (09:32)
[2019-01-18] MEDS: MAGNESIUM HYDROXIDE 30ML CUP PO PRN (11:07)
[2019-01-18] MEDS ORDERED: DIPHTH/TET/ACEL PERTUSS (ADULT) 0.5 ML VIAL IM* ONE (12:00)
[2019-01-18] MEDS ORDERED: MEASLES,MUMPS,RUBELLA VACCINE INJ SC* ONE (12:00)
--- NOTE | 2019-01-18 13:17 | DS ---
Date/Time of Note Date/Time of Note DATE: 01/18/19 TIME: 13:17 Discharge Summary Admission/Discharge Info Admit Date/Time January 15, 2019 at 10:52 Discharge Date/Time 01/18/2019 Discharge Diagnosis Patient Condition: Good Hospital Course uneventful Home Meds Reported Medications Vit No.124/Iron/FA ( Vitamin Tablet) 1 Each Tablet, 1 EACH PO, TAB 12/10/18 Primary Care Provider Care Physician No Primary GUIDO DELAROSA M.D. January 18, 2019 13:17
--- NOTE | 2019-01-18 13:17 | QN ---
Documentation Comment POD# 3 is stable afebrile tolerates diet No VB +BM +voids Vs stable Gen NAD Abd soft NT ND incision intact Genitalia No blood at perineum --->Discharge Home with precautions GUIDO DELAROSA M.D. January 18, 2019 13:17
[2019-01-19] MEDS ORDERED: MEASLES,MUMPS,RUBELLA VACCINE INJ SC* ONE (09:00)
[2019-01-19] MEDS ORDERED: DIPHTH/TET/ACEL PERTUSS (ADULT) 0.5 ML VIAL IM* ONE (09:00)
--- NOTE | 2019-01-19 16:07 | DELSUM ---
Delivery Summary A-C Datetime Report Generated by CPN: 01/19/2019 16:07 DELIVERY PERSONNEL Jute Bag Sewer: Jaimes, Tarsha MATERNAL INFORMATION Delivery Anesthesia: Spinal Medications in Delivery: SEE ANESTHESIA FLOWSHEET Delivery QBL (ml): 500 Placenta Cultured: No Maternal Complications: None LABOR SUMMARY EDC: 01/22/2019 00:00 No. Babies in Womb: 1 Attempted: No Labor Anesthesia: Epidural LABOR INFORMATION Reason for Induction: Not Applicable Onset of Labor: 01/15/2019 10:00 Oxytocin: N/A Group B Beta Strep: Positive Antibiotics # of Doses: 2 Antibiotics Time of Last Dose: 01/15/2019 20:30 Steroids Given: None Reason Steroids Not Administered: Not Applicable MEMBRANES Membranes Rupture Method: Spontaneous Rupture of Membranes: 01/15/2019 08:15 Length of Rupture (hr): 12.72 Amniotic Fluid Color: Clear Amniotic Fluid Amount: Moderate Amniotic Fluid Odor: None STAGES OF LABOR Stage 3 hr: 0 Stage 3 min: 1 Total Time in Labor hr: 10 Total Time in Labor min: 59 CSECTION DELIVERY Primary Indication: Other Other Primary Indication: MACROSOMIA Secondary Indication: N/A CSection Urgency: Elective CSection Incidence: Primary Labor: Labor Elective: Elective CSection Incision: Lower Uterine Transverse BABY A INFORMATION Infant Delivery Date/Time: 01/15/2019 20:58 Method of Delivery: Born in Route : No : N/A Forceps: N/A Vacuum Extraction: N/A Shoulder Dystocia : N/A SHOULDER DYSTOCIA BABY A Infant Delivery Date/Time: 01/15/2019 20:58 PRESENTATION/POSITION BABY A Presentation: Cephalic Cephalic Presentation: Vertex Breech Presentation: N/A PLACENTA INFORMATION BABY A Placenta Delivery Time : 01/15/2019 20:59 Placenta Method of Delivery: Manual Removal Placenta Status: Delivered SCORES BABY A Heart Rate 1 min: >100 bpm Resp Effort 1 min: Good Cry Reflex Irritability 1 min: Cough/Sneeze/Pulls Away Muscle Tone 1 min: Active Motion Color 1 min: Body [place], Extremit Blue Resuscitation Effort 1 min: Tactile Stimulation SCORE 1 MIN: 9 Heart Rate 5 min: >100 bpm Resp Effort 5 min: Good Cry Reflex Irritability 5 min: Cough/Sneeze/Pulls Away Muscle Tone 5 min: Active Motion Color 5 min: Body [place], Extremit Blue Resuscitation Effort 5 min: Tactile Stimulation SCORE 5 MIN: 9 INFORMATION BABY A Gestational Age at Delivery: 39.0 Gestational Status: Full Term- 39- 40.6 Weeks Infant Outcome : Liveborn Condition : Stable Infant Sex: Male IDENTIFICATION/MEDS BABY A ID Band Number: [id number] ID Band Location: Right Leg; Left Arm Sensor Applied: Yes Sensor Number: [id number] Sensor Location : Cord Clamp Vitamin K Given : Not Given Erythromycin Given: Not Given WEIGHT/LENGTH BABY A Birthweight (gm): 4645 Infant Weight (lb): 10 Infant Weight (oz): 4 Infant Length (in): 20.00 Infant Length (cm): 50.80 CORD INFORMATION BABY A No. Cord Vessels: 3 Nuchal Cord : N/A Cord Blood Taken: Yes Suction: Mouth; Nose ASSESSMENT BABY A Infant Complications: None Physical Findings at Delivery: Other Physical Findings- Other: BIRTHMARK ON LEFT BUTTOCK AREA Respirations: Appears Normal Cloth Hauler/ALS Called : No Care By: NICK Transferred To: Remains with Mother
== END 2019-01-18 15:55 | disposition home or self-care (01) | DRG 788 ==
LOC: OBT 09:41 → L-D 09:42 → OBT 10:35 → L-D 10:52 → PP1 01-16 01:22
PROVIDERS: ADMIT Obstetrics & Gynecology; ATTEND Obstetrics & Gynecology
PROC: 10D00Z1 Extraction of Products of Conception, Low, Open Approach (ICD-10-PCS; principal; 2019-01-16)
DX: O36.63X0 Maternal care for excessive fetal growth, third trimester, not applicable or unspecified (principal); Z3A.39 39 weeks gestation of pregnancy; Z37.0 Single live birth
CPT/HCPCS: 76815; 82947; 85025; 85610; 85730; 86592; 86850; 86900; 86901; 87340; 90715; 99464; G0463; J0290; J0456; J0595; J0690; J1100; J1200; J1885; J2250; J2274; J2370; J2405; J2590; J3010; J7120; J7121

== ENCOUNTER 2019-01-22 16:14 | Emergency (ER) | payer OTHER ==
[~2019-01-22] VITALS: Wt 89.0 kg
[~2019-01-22 16:14] MED LIST changes: -PROPOFOL 200 MG INJ ONE
[2019-01-22 16:17] VITALS: BP 139/78; PULSE 78; RESP 18
--- NOTE | 2019-01-22 17:41 | ERD ---
ER Documentation Chief Complaint Chief Complaint hives, right eyelid swelling HPI 23-year-old female, previously healthy, presents to the emergency department, complaining of 2 days with intermittent episodes of erythematous rash, worse in the face. The patient suspects a possible exposure to shellfish which she has an allergy to. she denies shortness of breath, no sore throat, no cough, no wheezing. No medications taken at this time for the symptoms. ROS All systems reviewed and are negative except as per history of present illness. Medications Home Meds Active Scripts Triamcinolone Acetonide (Triamcinolone Acetonide) 0.1% - 15 Gm Cream.gm., 1 APPLIC TOP BID, #1 TUB Prov:ADAIR GUZMAN MD 01/22/19 Diphenhydramine Hcl* (Benadryl*) 25 Mg Cap, 25 MG PO Q6 PRN for ITCHING/RASH, #12 TAB Prov:ADAIR GUZMAN MD 01/22/19 Reported Medications Vit No.124/Iron/FA ( Vitamin Tablet) 1 Each Tablet, 1 EACH PO, TAB 12/10/18 Allergies Allergies: Coded Allergies: iodine (Verified Allergy, Unknown, hives, 11/10/18) shellfish derived (Verified Allergy, Unknown, 12/10/18) PMhx/Soc Medical and Surgical Hx: pt denies Medical Hx Hx Miscellaneous Medical Probl: No FmHx Mother with diabetes Family History: diabetes; No coronary disease Physical Exam Vitals Vital Signs Date Temp Pulse Resp B/P (MAP) Pulse Ox O2 O2 Flow FiO2 Time Delivery Rate 01/22/19 99.0 78 18 139/78 99 16:17 (98) Physical Exam Patient alert, oriented, vital signs stable. HEAD: Normocephalic, atraumatic. EYES: PERRLA, EOMI, Sclera and conjunctiva appear normal, minimal erythema and edema of the right lower eyelid NOSE: Clear and patent nostrils. EARS: Canals clear, tympanic membranes WNL. MOUTH: normal lips and tongue, no oral lesions. THROAT: Normal oropharynx, no tonsillar exudates. NECK: Supple, No lymphadenopathy. Full ROM without pain or tenderness. HEART: RRR, no rubs, murmurs, clicks or gallops. LUNGS: Clear to auscultation. ABDOMEN: Soft, non-tender without masses or hepatosplenomegaly. EXTREMITIES: No edema bilaterally. BACK: Full ROM, no deformity, normal back exam NEURO: Cranial nerves grossly intact, no motor or sensory deficit SKIN: Mild erythematous rash on the face, no hives, no blisters. Results 24 hrs Current Medications Medications Dose Sig/Alvin Start Time Status Last (Trade) Ordered Route PRN Stop Time Admin Dose Reason Admin 25 mg ONCE ONCE 01/22/19 DC 01/22/19 Diphenhydrami PO 18:00 01/22/19 17:59 ne HCl 18:01 (Benadryl) Procedures/MDM Differential diagnosis include but not limited to: Acute allergic reaction, shingles, scabies, autoimmune dermatitis, medication side effect, low suspicion for angioedema, anaphylactic shock, Juares-Dennis syndrome. Physical examination and clinical presentation consistent most likely with acute allergic dermatitis During the ED course the patient remained hemodynamically stable stable, no new complaints. The patient received treatment p.o. Benadryl. Results and clinical impression discussed with patient who agrees with management. The patient is stable to be treated outpatient and will be discharged home with a Rx for triamcinolone and Benadryl, some side effects of prescribed medications (headache, rash, nausea, vomiting, diarrhea, hypertension, interactions with other medications) were reviewed. The patient was instructed to follow up with the primary care provider in the next 48h. If symptoms persist, worsen or new symptoms develop, then patient should return to the ED immediately. Instructions explained and given directly by me with acknowledgment and demonstrated understanding. Disclaimer: Inadvertent spelling and grammatical errors are likely due to EHR/dictation software use and do not reflect on the overall quality of patient care. Also, please note that the electronic time recorded on this note does not necessarily reflect the actual time of the patient encounter. Departure Diagnosis: Primary Impression: Allergic dermatitis Condition: Stable Additional Instructions: Thank you very much for allowing us to participate in your care. Your health and safety is our top priority at [facility]. Call your primary care doctor TOMORROW for an appointment during the next 2-4 days and bring all the information provided. Have prescriptions filled and follow precisely the directions on the label. If the symptoms get worse and your provider is unavailable, return to the Emergency Department immediately. ADAIR GUZMAN MD Jan 22, 2019 17:41
[2019-01-22] MEDS ORDERED: DIPHENHYDRAMINE 25 MG CAP PO ONE (18:00)
[2019-01-22] MEDS ORDERED: BEN25 PO (18:02)
[2019-01-22] MEDS ORDERED: TRIA15CR55 TOP (18:02)
== END 2019-01-22 18:22 | disposition home or self-care (01) ==
LOC: FTE 16:14
DX: L23.9 Allergic contact dermatitis, unspecified cause (principal)
CPT/HCPCS: Z7502; Z7610; 99282

== ENCOUNTER 2019-02-18 11:17 | Emergency (ER) | payer OTHER ==
[~2019-02-18] VITALS: Ht 167.6 cm; Wt 72.0 kg
[~2019-02-18 11:17] MED LIST changes: +BEN25 PO; +TRIA15CR55 TOP
[2019-02-18 11:22] VITALS: BP 132/80; PULSE 65; RESP 16; Ht 167.6 cm; Wt 72.0 kg
[2019-02-18] MEDS ORDERED: IBUP-1542 PO (13:38)
--- NOTE | 2019-02-18 13:42 | ERD ---
ER Documentation Chief Complaint Chief Complaint pt is bib self with c/o right wrist pain x 1 month, HPI 23-year-old female presents with pain in the right wrist for the last month. She is approximately 3 months . She denies any recollection of specific injury. She has no restricted range of motion or weakness. She has pain with extension of the right thumb. She has no redness, bleeding or discharge. She denies other symptoms. ROS All systems reviewed and are negative except as per history of present illness. Medications Home Meds Active Scripts Ibuprofen* (Motrin*) 600 Mg Tab, 600 MG PO Q6, #20 TAB Prov:EDMAR DING MD 02/18/19 Triamcinolone Acetonide (Triamcinolone Acetonide) 0.1% - 15 Gm Cream.gm., 1 APPLIC TOP BID, #1 TUB Prov:ADAIR GUZMAN MD 01/22/19 Diphenhydramine Hcl* (Benadryl*) 25 Mg Cap, 25 MG PO Q6 PRN for ITCHING/RASH, #12 TAB Prov:ADAIR GUZMAN MD 01/22/19 Reported Medications Vit No.124/Iron/FA ( Vitamin Tablet) 1 Each Tablet, 1 EACH PO, TAB 12/10/18 Allergies Allergies: Coded Allergies: iodine (Verified Allergy, Unknown, hives, 11/10/18) shellfish derived (Verified Allergy, Unknown, 12/10/18) PMhx/Soc Medical and Surgical Hx: pt denies Medical Hx, pt denies Surgical Hx Hx Miscellaneous Medical Probl: No Hx Alcohol Use: No Hx Substance Use: No Hx Tobacco Use: No Smoking Status: Never smoker FmHx Family History: No diabetes, No coronary disease, No other Physical Exam Vitals Vital Signs Date Temp Pulse Resp B/P (MAP) Pulse Ox O2 O2 Flow FiO2 Time Delivery Rate 02/18/19 97.3 65 16 132/80 98 11:22 (97) Physical Exam Const: No acute distress Head: Atraumatic Eyes: Normal Conjunctiva ENT: Normal External Ears, Nose and Mouth. Neck: Full range of motion. No meningismus. Resp: Clear to auscultation bilaterally Cardio: Regular rate and rhythm, no murmurs Abd: Soft, non tender, non distended. Normal bowel sounds Skin: No petechiae or rashes Back: No midline or flank tenderness Ext: No cyanosis, or edema. Positive Kirill test some tenderness in the right thumb extensor tendon. No erythema, effusion, deficits, and cap refill is less than 2 seconds. Neur: Awake and alert Psych: Normal Mood and Affect Procedures/MDM X-ray Wrist 3V Interpreted by me: Scaphoid: Normal Bones: No fracture Joints: No dislocation Foreign body: None. Impression-normal right wrist x-ray Patient is placed in a right thumb spica splint was neurovascular intact after splint. Patient presents with signs and symptoms of right thumb de Quervain's tenosynovitis without signs of bacterial infection, ischemia, deficits, infection. He will be discharged home with recommendations for ice, use of splint for 2 weeks, primary care follow-up and orthopedic evaluation for persistent symptoms. She is to return for fevers, redness, new worsening symptoms. The patient was stable with no new complaints during the ER course. Clinically, there is no current evidence to suggest meningitis, sepsis, acute abdomen, pneumonia, stroke, acute coronary syndrome, pulmonary embolism, aortic dissection or any other emergent condition appearing to require further evaluation or hospitalization. Patient counseled regarding my diagnostic impression and care plan. Prior to discharge all questions answered. Pt agrees with treatment plan and understands strict return precautions. Pt is instructed to follow up with primary care provider within 24-48 hours. Precautionary in structions provided including instructions to return to the ER if not improving or for any worsening or changing symptoms or concerns. Disclaimer: Inadvertent spelling and grammatical errors are likely due to EHR/dictation software use and do not reflect on the overall quality of patient care. Also, please note that the electronic time recorded on this note does not necessarily reflect the actual time of the patient encounter. Departure Diagnosis: Primary Impression: Tendonitis Condition: Stable Patient Instructions: Tendonitis Additional Instructions: X-ray appears normal. Use splint as much as possible for the next 2 weeks. Lik lin tendinitis. Apply ice 2-3 times a day for 15-20 minutes. See orthopedist or primary doctor for persistent pain. Recheck for new or worsening symptoms otherwise. EDMAR DING MD Feb 18, 2019 13:42
== END 2019-02-18 14:05 | disposition home or self-care (01) ==
LOC: FTE 11:17
DX: M77.8 Other enthesopathies, not elsewhere classified (principal)
CPT/HCPCS: 29125; 73110; Z7502

== ENCOUNTER 2019-03-14 23:45 | Emergency (ER) | payer OTHER ==
[~2019-03-14] VITALS: Ht 157.5 cm; Wt 78.9 kg
[~2019-03-14 23:45] MED LIST changes: +CEPH-443 PO; +IBUP-1542 PO
[2019-03-15 00:12] VITALS: Ht 157.5 cm; Wt 78.9 kg
[2019-03-15] MEDS ORDERED: KETOROLAC 30 MG INJ IV STA (02:40)
[2019-03-15] MEDS ORDERED: SOD CHLORIDE 0.9% 1,000 ML IV STA (02:40)
[2019-03-15] MEDS ORDERED: CEFTRIAXONE 1 GM/50 ML (PMX) 50 ML IVPB ONE (06:30)
[2019-03-15 06:54] VITALS: BP 100/55; PULSE 68; RESP 19
--- NOTE | 2019-03-16 21:42 | ERD ---
ER Documentation Chief Complaint Chief Complaint generalize body pain/fever x 1 day HPI 23-year-old female presents complaint of generalized body pain and fever for the past 4 days. States that she was just recently had a another clinic and they prescribed her Keflex for the breast pain that she is experiencing. In addition shows that she is experiencing some flank pain. Is taking Tylenol. Last dose was at 10 PM today. She denies any dysuria, hematuria, chest pain, shortness of breath, nausea, vomiting, diarrhea, headaches, neck stiffness. ROS All systems reviewed and are negative except as per history of present illness. Medications Home Meds Active Scripts Cephalexin* (Keflex*) 500 Mg Capsule, 500 MG PO BID for 14 Days, CAP Prov:ALDAIR VO 03/15/19 Ibuprofen* (Motrin*) 600 Mg Tab, 600 MG PO Q6, #20 TAB Prov:EDMAR DING MD 02/18/19 Triamcinolone Acetonide (Triamcinolone Acetonide) 0.1% - 15 Gm Cream.gm., 1 APPLIC TOP BID, #1 TUB Prov:ADAIR GUZMAN MD 01/22/19 Diphenhydramine Hcl* (Benadryl*) 25 Mg Cap, 25 MG PO Q6 PRN for ITCHING/RASH, #12 TAB Prov:ADAIR GUZMAN MD 01/22/19 Reported Medications Vit No.124/Iron/FA ( Vitamin Tablet) 1 Each Tablet, 1 EACH PO, TAB 12/10/18 Allergies Allergies: Coded Allergies: iodine (Verified Allergy, Unknown, hives, 11/10/18) shellfish derived (Verified Allergy, Unknown, 12/10/18) PMhx/Soc History of Surgery: Yes (, GALL BLADDER REMOVED ) Hx Miscellaneous Medical Probl: No Hx Alcohol Use: No Hx Substance Use: No Hx Tobacco Use: No Smoking Status: Never smoker FmHx Family History: No diabetes, No coronary disease, No other Physical Exam Vitals Physical Exam Const: No acute distress Head: Atraumatic Eyes: Normal Conjunctiva ENT: Normal External Ears, Nose and Mouth. Neck: Full range of motion. No meningismus. Resp: Clear to auscultation bilaterally Cardio: Regular rate and rhythm, no murmurs Abd: Soft, non tender, non distended. Normal bowel sounds. Negative McBurney's. Negative Feldman's. Skin: No petechiae or rashes Back: No midline or flank tenderness Ext: No cyanosis, or edema Neur: Awake and alert Psych: Normal Mood and Affect Breasts: Performed instructional specialist present. Nonerythematous or edematous no masses noted. No nipple drainage noted. No skin retraction noted. Nontender to palpation. Results 24 hrs Laboratory Tests Test 03/15/19 02:40 03/15/19 02:57 POC Beta HCG, Qualitative NEGATIVE White Blood Count 8.0 10^3/ul Red Blood Count 3.85 10^6/ul Hemoglobin 11.8 g/dl Hematocrit 36.7 % Mean Corpuscular Volume 95.3 fl Mean Corpuscular Hemoglobin 30.6 pg Mean Corpuscular Hemoglobin Concent 32.2 g/dl Red Cell Distribution Width 13.6 % Platelet Count 207 10^3/UL Mean Platelet Volume 10.8 fl Immature Granulocytes % 0.200 % Neutrophils % 71.4 % Lymphocytes % 17.4 % Monocytes % 8.2 % Eosinophils % 2.2 % Basophils % 0.6 % Nucleated Red Blood Cells % 0.0 /100WBC Immature Granulocytes # 0.020 10^3/ul Neutrophils # 5.7 10^3/ul Lymphocytes # 1.4 10^3/ul Monocytes # 0.7 10^3/ul Eosinophils # 0.2 10^3/ul Basophils # 0.1 10^3/ul Nucleated Red Blood Cells # 0.0 10^3/ul Urine Color COLORLESS Urine Clarity CLEAR Urine pH 7.0 Urine Specific [place] 1.003 Urine Ketones NEGATIVE mg/dL Urine Nitrite NEGATIVE mg/dL Urine Bilirubin NEGATIVE mg/dL Urine Urobilinogen NEGATIVE mg/dL Urine Leukocyte Esterase NEGATIVE [place]/ul Urine Hemoglobin NEGATIVE mg/dL Urine Glucose NEGATIVE mg/dL Urine Total Protein NEGATIVE mg/dl Sodium Level 141 mmol/L Potassium Level 3.8 mmol/L Chloride Level 108 mmol/L Carbon Dioxide Level 24 mmol/L Anion Gap 9 Blood Urea Nitrogen 6 mg/dl Creatinine 0.65 mg/dl Est Glomerular Filtrat Rate mL/min > 60 mL/min Glucose Level 97 mg/dl Calcium Level 8.9 mg/dl Total Bilirubin 0.5 mg/dl Direct Bilirubin 0.00 mg/dl Indirect Bilirubin 0.5 mg/dl Aspartate Amino Transf (AST/SGOT) 80 IU/L Alanine Aminotransferase (ALT/SGPT) 95 IU/L Alkaline Phosphatase 116 IU/L Total Protein 7.5 g/dl Albumin 4.2 g/dl Globulin 3.30 g/dl Albumin/Globulin Ratio 1.27 Lipase 49 U/L Current Medications Medications Dose Sig/Alvin Start Time Status Last (Trade) Ordered Route PRN Stop Time Admin Dose Reason Admin Sodium 1,000 ml @ Q1H STAT 03/15/19 DC 03/15/19 Chloride 1,000 mls/hr IV 02:40 03:08 03/15/19 03:39 Ketorolac 30 mg ONCE STAT 03/15/19 DC 03/15/19 Tromethamine IV 02:40 03:09 (Toradol) 03/15/19 02:45 Ceftriaxone 50 ml @ ONCE ONCE 03/15/19 DC 03/15/19 Sodium 100 mls/hr IVPB 06:30 06:28 03/15/19 06:59 Procedures/MDM DIAGNOSTIC IMAGING REPORT Patient: PADMAJA VICENTE : 1995 Age: 23 Sex: F MR #: [id number] DOS: 03/15/19 0447 Ordering MD: ALDAIR VO Location: [facility] Room/Bed: PROCEDURE: CT Abdomen and pelvis without contrast. CLINICAL INDICATION: Flank pain TECHNIQUE: CT scan of the abdomen and pelvis without contrast was performed on a multidetector high-resolution CT scan. . Coronal and sagittal reformatted images were obtained from the axial source images. Standard CT scan of the abdomen pelvis without contrast protocols were performed. The total exam CTDI equals 14.72 mGy and the total exam DLP equals 832.66 mGy- cm. One or more of the following dose reduction techniques were used: - Automated exposure control. - Adjustment of the mA and/or kV according to patient size. Use of iterative reconstruction technique. Dicom images are available COMPARISON: None. FINDINGS: The kidneys are normal in size without calcified calculi hydronephrosis or intra renal masses bilaterally. No evidence ureteral calcified calculi or dilatation. Urinary bladder unremarkable. Retroverted uterus otherwise unremarkable. No adnexal masses. Trace fluid in the cul-de-sac. No other abdominal free fluid. Negative intra- abdominal free air abscesses or lymphadenopathy. Status post prior cholecystectomy. No biliary ductal dilation. Liver spleen pancreas and adrenal glands are unremarkable. Stomach, small bowel, large bowel and appendix unremarkable. Wide mouth umbilical fat-containing hernia without herniated bowel or strangulation. Bibasilar subsegmental atelectasis and chronic interstitial lung disease. Aorta unremarkable. Osseous structures unremarkable without acute osseous findings are osteoblastic/osteolytic lesions. IMPRESSION: 1. No evidence of calcified urinary calculi or obstructive uropathy bilaterally. 2. No gastrointestinal disease. 3. Status post prior cholecystectomy. No biliary ductal dilation. 4. Trace free fluid in the cul-de-sac. Negative intra-abdominal free air or abscess. 5. Fat-containing umbilical hernia without herniated bowel or strangulation. RPTAT:AAJJ Physician Mikael Date Time Electronically viewed and signed by Physician Mikael on 03/15/2019 06:00 BM/ DIAGNOSTIC IMAGING REPORT Patient: PADMAJA VICENTE : 1995 Age: 23 Sex: F MR #: [id number] DOS: 03/15/19 0240 Ordering MD: ALDAIR VO Location: [facility] Room/Bed: PROCEDURE: Pelvic ultrasound color-flow Doppler of the adnexa CLINICAL INDICATION: Pain TECHNIQUE: Multiple sagittal, oblique and transverse real time images were obtained of the lower abdomen and pelvis using a transabdominal approach. Color- flow Doppler of the adnexa was performed COMPARISON: None. FINDINGS: The uterus is normal limits in size measuring 7.87 x 4.59 x 5.65 cm. Myometrial echoes are homogeneous without focal lesions. Endometrium homogeneous without focal lesion normal thickness maximal AP diameter 0.95 cm. The ovaries are normal in size the right measuring 3.84 x 1.75 x 2.41 cm and the left measuring 3.14 x 2.32 x 2.27 cm. No ovarian masses. Flow to both ovaries without ultrasoni c evidence of ovarian torsion. No adnexal masses or free fluid. IMPRESSION: 1. Normal size uterus and ovaries without focal lesions. 2. No ultrasonic evidence of ovarian torsion. 3. No adnexal masses or free fluid. RPTAT:AAJJ Physician Mikael Date Time Electronically viewed and signed by Physician Mikael on 03/15/2019 04:15 BM/ CC: ALDAIR VO [id number] MDM: Case was discussed with supervising physician we decided to do CT abdomen pelvis with contrast given patient's complaint of abdominal pain as well as fever. Results within normal limits. In addition, chest x-ray and pelvic ultrasound were also within normal limits. Given, patient's complaint of breast pain, I advised patient that she needs to get a mammogram performed to rule out disease. Given patient's complaint of flank pain with soft some mild CVA tenderness as well as fever decision was made to treat for possible pyelonephritis with 1 g of ceftriaxone in the ER for 14 days of Keflex. At this time I have low suspicion for abscess, acute space infection, mastitis, appendicitis, cholecystitis, acute abdomen, ovarian torsion, PID, tubo-ovarian abscess, or any emergent condition. At this time, patient is stable for discharge and outpatient management. I have instructed the patient to follow-up with his/her primary care physician in 1-2 days. I have discussed with the patient the possibility of needing to see a specialist for further workup and imaging studies if symptoms persist. I have instructed the patient to promptly return to the ER for any new or worsening symptoms including but not limited to increased pain, fever, nausea, vomiting, weakness or LOC. The patient and/or family expressed understanding of and agreement with this plan. All questions were answered. Home care instructions were provided. DISCLAIMER: Inadvertent spelling and grammatical errors are likely due to EHR/dictation software use and do not reflect on the overall quality of patient care. Also, please note that the electronic time recorded on this note does not necessarily reflect the actual time of the patient encounter. Departure Diagnosis: Primary Impression: Generalized pain Additional Impressions: Flank pain Breast pain Condition: Stable Patient Instructions: Breast Mass, Uncertain Cause, Flank Pain, Uncertain Cause Referrals: [facility] YOU HAVE RECEIVED A MEDICAL SCREENING EXAM AND THE RESULTS INDICATE THAT YOU DO NOT HAVE A CONDITION THAT REQUIRES URGENT TREATMENT IN THE EMERGENCY DEPARTMENT. FURTHER EVALUATION AND TREATMENT OF YOUR CONDITION CAN WAIT UNTIL YOU ARE SEEN IN YOUR DOCTORS OFFICE WITHIN THE NEXT 1-2 DAYS. IT IS YOUR RESPONSIBILITY TO MAKE AN APPOINTMENT FOR FOLOW-UP CARE. IF YOU HAVE A PRIMARY DOCTOR --you should call your primary doctor and schedule an appointment IF YOU DO NOT HAVE A PRIMARY DOCTOR YOU CAN CALL OUR PHYSICIAN REFERRAL HOTLINE AT IF YOU CAN NOT AFFORD TO SEE A PHYSICIAN YOU CAN CHOSE FROM THE FOLLOWING [facility] [address] [facility]. [facility] [address] [facility]. [facility] [address] [facility] [facility] [address] [facility] [facility] [address] [facility]. [facility]. [address] Additional Instructions: FOLLOW UP WITH YOUR PRIMARY CARE PHYSICIAN TOMORROW. Regarding the lumps felt on the breast exam, please go to your OB for mammogram. Return to this facility if you are not improving as expected. ALDAIR VO Mar 16, 2019 21:42
== END 2019-03-15 06:55 | disposition home or self-care (01) ==
LOC: FTE 23:45
DX: N64.4 Mastodynia (principal); R10.9 Unspecified abdominal pain
CPT/HCPCS: 36415; 71045; 74176; 76856; 80053; 81003; 81025; 83690; 85025; 87086; 96365; 96375; J0696; J1885; J7030; Z7502